=== PATIENT | male | born 1940 | race African-American/Black ===

== ENCOUNTER → 2017-01-26 | Outpatient (CLI) | payer MEDICARE, MEDICAID ==
[~2017-01-26] MED LIST: AMLO5TAB88 PO; ASPI-1159 PO; ATEN50TA PO; ATOR10TA69 PO; CARV3.1242 PO; CLOP75TA33 PO; DEXL60CA3 PO; FERR-63 PO; FURO20TA4 PO; OXYC-100 PO; POTA10CA42 PO
== END | disposition home or self-care (01) ==
LOC: RAD 14:21
PROVIDERS: ATTEND Internal Medicine Clinical Cardiac Electrophysiology
DX: I50.22 Chronic systolic (congestive) heart failure (principal); I25.5 Ischemic cardiomyopathy; I51.7 Cardiomegaly; Z95.810 Presence of automatic (implantable) cardiac defibrillator
CPT/HCPCS: 71010

== ENCOUNTER 2017-01-28 13:37 | Inpatient (IN) | payer MEDICARE, MEDICAID ==
[~2017-01-28] VITALS: Ht 182.9 cm; Wt 52.2 kg
[~2017-01-28 13:37] MED LIST changes: -ASPI-1159 PO; -CARV3.1242 PO; -FERR-63 PO; -FURO20TA4 PO; +IOHEXOL-300 100 ML BOTTLE ONE; -OXYC-100 PO; -POTA10CA42 PO; +SODIUM CHLORIDE 0.9% 10ML VIAL ONE
[2017-01-28] MEDS ORDERED: SODIUM CHLORIDE 0.9% 1,000 ML IV ONE (14:35)
[2017-01-28] MEDS ORDERED: ONDANSETRON HCL 4MG/2ML VIAL IV ONE (14:45)
[2017-01-28 15:11] LABS: BASOPHILS % 1.5 % (0.0-2.0); HEMATOCRIT. 30.3 % (42.0-52.0); LYMPHOCYTES % 23.2 % (20.0-50.0); MEAN CORPUSCULAR HEMOGLOBIN 28.6 pg (28.0-32.0); MEAN CORPUSCULAR VOLUME 86.6 fL (80.0-94.0); MEAN PLATELET VOLUME 7.8 fl (7.4-10.4); NEUTROPHILS % 58.3 % (40.0-76.0); PLATELET 239 x1000/uL (130-400); RED CELL DISTRIBUTION WIDTH 18.6 % (11.6-14.6)
[2017-01-28 15:19] LABS: INR 1.2; PROTHROMBIN TIME 12.1 sec (9.4-11.6)
[2017-01-28] MEDS ORDERED: CARV3.1242 PO (15:21)
[2017-01-28] MEDS ORDERED: ASPI-1159 PO (15:22)
[2017-01-28] MEDS ORDERED: FERR-63 PO (15:23)
[2017-01-28] MEDS ORDERED: FURO20TA4 PO (15:23)
[2017-01-28] MEDS ORDERED: OXYC-100 PO (15:24)
[2017-01-28] MEDS ORDERED: POTA10CA42 PO (15:25)
[2017-01-28 15:28] LABS: CARBON DIOXIDE 27 mEq/L (21-32); CHLORIDE 117 mEq/L (98-107); TROPONIN I 0.03 ng/mL (0.00-0.04)
[2017-01-28 16:00] LABS: CLARITY URINE CLEAR (CLEAR); COLOR URINE YELLOW (YELLOW); GLUCOSE URINE NEGATIVE (NEGATIVE); KETONES URINE NEGATIVE (NEGATIVE); LEUKOCYTE ESTERASE URINE NEGATIVE (NEGATIVE); NITRITE URINE NEGATIVE (NEGATIVE); OCCULT BLOOD URINE NEGATIVE (NEGATIVE); PROTEIN URINE NEGATIVE (NEGATIVE); UROBILINOGEN URINE 0.2 E.U./dL (0.2-1.0)
[2017-01-28] MEDS ORDERED: PANTOPRAZOLE SODIUM 40 MG/VIAL IV SCH (20:45)
[2017-01-28 21:00] VITALS: BP 116/58
[2017-01-28] MEDS ORDERED: ONDANSETRON HCL 4MG/2ML VIAL IV PRN (21:22)
[2017-01-28] MEDS ORDERED: ACETAMINOPHEN 325MG TABLET PO PRN (21:24)
[2017-01-28] MEDS ORDERED: DIPHENHYDRAMINE 50MG/ML VIAL IV PRN (21:24)
[2017-01-28] MEDS ORDERED: DEXT 5%/0.2% NACL 1,000 ML IV SCH (21:24)
[2017-01-28 23:24] VITALS: BP 116/58
[2017-01-29] VITALS: BP 107/57
[2017-01-29] MEDS: DEXT 5%/0.2% NACL 1,000 ML IV SCH ×2 (01:00→02:38)
[2017-01-29 04:00] VITALS: BP 115/60
[2017-01-29] MEDS: PANTOPRAZOLE 40MG DR TABLET PO SCH (06:19)
[2017-01-29 06:46] LABS: BASOPHILS % 1.2 % (0.0-2.0); HEMOGLOBIN. 10.1 g/dL (14.0-18.0); LYMPHOCYTES % 23.1 % (20.0-50.0); MEAN CORPUSCULAR VOLUME 86.2 fL (80.0-94.0); MEAN PLATELET VOLUME 7.9 fl (7.4-10.4); MONOCYTES % 8.4 % (2.0-8.0); NEUTROPHILS % 59.3 % (40.0-76.0); PLATELET 221 x1000/uL (130-400); RED BLOOD CELL COUNT 3.47 mill/uL (4.7-6.1); RED CELL DISTRIBUTION WIDTH 18.9 % (11.6-14.6)
[2017-01-29 07:20] LABS: CARBON DIOXIDE 25 mEq/L (21-32); CHLORIDE 112 mEq/L (98-107)
[2017-01-29 07:23] LABS: TROPONIN I 0.04 ng/mL (0.00-0.04)
[2017-01-29 08:00] VITALS: BP 108/66
[2017-01-29] MEDS ORDERED: AMLODIPINE 5MG TABLET PO SCH (09:00)
[2017-01-29] MEDS: AMLODIPINE 2.5MG TABLET PO SCH (09:00)
[2017-01-29] MEDS: CLOPIDOGREL 75MG TABLET PO SCH (09:19)
[2017-01-29] MEDS: ASPIRIN 81MG EC TABLET PO SCH (09:20)
[2017-01-29] MEDS: CARVEDILOL 3.125 MG TABLET PO SCH ×2 (09:20→18:29)
[2017-01-29 12:03] VITALS: BP 95/63
[2017-01-29 16:00] VITALS: BP_SYST 105; BP_SYST 110; BP_SYST 116; BP_DIAS 67; BP_DIAS 68; BP_DIAS 70
[2017-01-29 20:00] VITALS: BP_SYST 109; BP_SYST 121; BP_SYST 122; BP_DIAS 66; BP_DIAS 73; BP_DIAS 75
[2017-01-29] MEDS ORDERED: MAGNESIUM/ALUMINUM HYDROXIDE/SIMETHICONE 30ML UDC PO PRN (20:00)
[2017-01-29] MEDS: ATORVASTATIN CALCIUM 10MG TABLET PO SCH (21:03)
[2017-01-30] VITALS: BP 105/62
[2017-01-30 04:00] VITALS: BP 115/69
[2017-01-30] MEDS: PANTOPRAZOLE 40MG DR TABLET PO SCH (06:02)
[2017-01-30 06:43] LABS: BASOPHILS % 0.7 % (0.0-2.0); EOSINOPHILS % 6.3 % (0.0-5.0); HEMATOCRIT. 30.8 % (42.0-52.0); HEMOGLOBIN. 10.3 g/dL (14.0-18.0); MEAN CORPUSCULAR HEMOGLOBIN 29.1 pg (28.0-32.0); MEAN CORPUSCULAR VOLUME 86.7 fL (80.0-94.0); MEAN PLATELET VOLUME 7.8 fl (7.4-10.4); MONOCYTES % 8.1 % (2.0-8.0); NEUTROPHILS % 66.9 % (40.0-76.0); PLATELET 211 x1000/uL (130-400); RED BLOOD CELL COUNT 3.55 mill/uL (4.7-6.1); RED CELL DISTRIBUTION WIDTH 18.5 % (11.6-14.6)
[2017-01-30 08:00] VITALS: BP 111/72
[2017-01-30] MEDS: AMLODIPINE 2.5MG TABLET PO SCH (08:18)
[2017-01-30] MEDS: ASPIRIN 81MG EC TABLET PO SCH (08:18)
[2017-01-30] MEDS: CLOPIDOGREL 75MG TABLET PO SCH (08:18)
[2017-01-30] MEDS: CARVEDILOL 3.125 MG TABLET PO SCH ×2 (08:18→16:10)
[2017-01-30 08:33] LABS: CARBON DIOXIDE 26 mEq/L (21-32); CHLORIDE 107 mEq/L (98-107); CREATINE KINASE 65 IU/L (39-308); HDL CHOLESTEROL 52 mg/dL (40-59); LDL CHOLESTEROL 88 mg/dL (5-100)
[2017-01-30 12:00] VITALS: BP_SYST 100; BP_SYST 103; BP_SYST 110; BP_DIAS 62; BP_DIAS 64; BP_DIAS 68
[2017-01-30 16:07] VITALS: BP 113/65
[2017-01-30 20:51] VITALS: BP_SYST 101; BP_SYST 105; BP_SYST 93; BP_DIAS 64; BP_DIAS 66
[2017-01-30] MEDS: ATORVASTATIN CALCIUM 10MG TABLET PO SCH (21:37)
[2017-01-31 00:25] VITALS: BP 96/60
[2017-01-31 03:50] VITALS: BP 100/66
[2017-01-31] MEDS: PANTOPRAZOLE 40MG DR TABLET PO SCH (06:31)
[2017-01-31 07:17] LABS: BASOPHILS % 0.6 % (0.0-2.0); EOSINOPHILS % 7.5 % (0.0-5.0); HEMATOCRIT. 30.8 % (42.0-52.0); HEMOGLOBIN. 10.4 g/dL (14.0-18.0); LYMPHOCYTES % 22.6 % (20.0-50.0); MEAN CORPUSCULAR HEMOGLOBIN 28.9 pg (28.0-32.0); MEAN CORPUSCULAR VOLUME 85.6 fL (80.0-94.0); MEAN PLATELET VOLUME 8.1 fl (7.4-10.4); MONOCYTES % 8.5 % (2.0-8.0); NEUTROPHILS % 60.8 % (40.0-76.0); PLATELET 210 x1000/uL (130-400); RED CELL DISTRIBUTION WIDTH 18.1 % (11.6-14.6)
[2017-01-31 08:00] VITALS: BP 98/66
[2017-01-31 08:00] LABS: CARBON DIOXIDE 27 mEq/L (21-32); CHLORIDE 108 mEq/L (98-107)
[2017-01-31] MEDS: CLOPIDOGREL 75MG TABLET PO SCH (08:33)
[2017-01-31] MEDS: ASPIRIN 81MG EC TABLET PO SCH (08:33)
[2017-01-31] MEDS: AMLODIPINE 2.5MG TABLET PO SCH (08:42)
[2017-01-31] MEDS: CARVEDILOL 3.125 MG TABLET PO SCH (09:00)
[2017-01-31 12:00] VITALS: BP 99/61
[2017-01-31 15:52] VITALS: BP_SYST 112; BP_SYST 117; BP_SYST 119; BP_DIAS 70; BP_DIAS 78; BP_DIAS 80
[2017-01-31 16:43] VITALS: BP 117/78
== END 2017-01-31 17:20 | disposition home or self-care (01) | DRG 73 ==
LOC: ER 14:26 → EDBEDREQTM 19:26 → EDBEDREQ 19:26 → EDBEDREQTM 19:44 → EDBEDREQ 19:44 → 6WST 19:44 → ENRESERV 19:54 → 6WST 20:54
PROVIDERS: ADMIT Internal Medicine; ATTEND Internal Medicine
PROC: 4B02XTZ Measurement of Cardiac Defibrillator, External Approach (ICD-10-PCS; principal; 2017-01-31)
DX: G90.8 Other disorders of autonomic nervous system (principal); E43 Unspecified severe protein-calorie malnutrition; E87.0 Hyperosmolality and hypernatremia; I50.22 Chronic systolic (congestive) heart failure; I42.0 Dilated cardiomyopathy; Z68.1 Body mass index [BMI] 19.9 or less, adult; I11.0 Hypertensive heart disease with heart failure; K21.9 Gastro-esophageal reflux disease without esophagitis; I25.10 Atherosclerotic heart disease of native coronary artery without angina pectoris; E78.00 Pure hypercholesterolemia, unspecified; I34.0 Nonrheumatic mitral (valve) insufficiency; I73.9 Peripheral vascular disease, unspecified; K57.90 Diverticulosis of intestine, part unspecified, without perforation or abscess without bleeding; N20.0 Calculus of kidney; Z87.891 Personal history of nicotine dependence; Z95.0 Presence of cardiac pacemaker; I25.2 Old myocardial infarction; Z79.82 Long term (current) use of aspirin; Z79.899 Other long term (current) drug therapy
CPT/HCPCS: 36415; 70450; 71010; 74177; 80053; 80061; 81003; 82550; 82553; 82962; 83605; 83690; 83735; 83880; 84484; 85025; 85379; 85610; 93005; 93306; 93970; 96361; 96374; 99285; A4216; J2405; J7030; Q9967

== ENCOUNTER 2018-06-20 19:07 | Emergency (ER) | payer MEDICARE, MEDICAID ==
[~2018-06-20] VITALS: Ht 175.3 cm; Wt 66.0 kg
[~2018-06-20 19:07] MED LIST changes: +ASPI-1159 PO; -ATEN50TA PO; +CARV3.1242 PO; +FERR-63 PO; +FURO20TA4 PO; -IOHEXOL-300 100 ML BOTTLE ONE; +OXYC-100 PO; +POTA10CA42 PO; -SODIUM CHLORIDE 0.9% 10ML VIAL ONE
[2018-06-21] MEDS ORDERED: KETOROLAC 30MG/ML VIAL IV STA (00:13)
[2018-06-21 01:23] LABS: BASOPHILS % 0.5 % (0.0-2.0); EOSINOPHILS % 5.7 % (0.0-5.0); HEMATOCRIT. 39.3 % (42.0-52.0); HEMOGLOBIN. 13.1 g/dL (14.0-18.0); LYMPHOCYTES % 32.5 % (20.0-50.0); MEAN CORPUSCULAR HEMOGLOBIN 31.9 pg (28.0-32.0); MEAN CORPUSCULAR VOLUME 95.5 fL (80.0-94.0); MEAN PLATELET VOLUME 8.8 fl (7.4-10.4); MONOCYTES % 9.3 % (2.0-8.0); PLATELET 168 x1000/uL (130-400); RED BLOOD CELL COUNT 4.11 mill/uL (4.7-6.1); RED CELL DISTRIBUTION WIDTH 14.3 % (11.6-14.6)
[2018-06-21 01:30] LABS: CHLORIDE 108 mEq/L (98-107)
[2018-06-21 05:46] VITALS: BP 116/70
== END 2018-06-21 05:54 | disposition home or self-care (01) ==
LOC: ER 19:07
DX: M54.12 Radiculopathy, cervical region (principal); I51.9 Heart disease, unspecified; Z79.899 Other long term (current) drug therapy; Z95.0 Presence of cardiac pacemaker
CPT/HCPCS: 36415; 71045; 72125; 80053; 84484; 85025; 93005; 96374; 99284; J1885

== ENCOUNTER 2019-03-06 12:16 | Inpatient (IN) | payer MEDICARE, MEDICAID ==
[~2019-03-06] VITALS: Ht 175.3 cm; Wt 64.4 kg
[~2019-03-06 12:16] MED LIST changes: -ASPI-1159 PO; +ASPI-1393 PO
[2019-03-06] MEDS ORDERED: SODIUM CHLORIDE 0.9% 1,000 ML IV ONE (12:23)
[2019-03-06] MEDS ORDERED: CEFTRIAXONE 1 G PREMIX 50 ML IV ONE (13:00)
[2019-03-06] MEDS ORDERED: AZITHROMYCIN 500 MG in DEXT 5% WATER 250 ML IV ONE (13:00)
[2019-03-06 13:24] LABS: HEMATOCRIT. 35.3 % (42.0-52.0); HEMOGLOBIN. 11.7 g/dL (14.0-18.0); MEAN CORPUSCULAR HEMOGLOBIN 31.6 pg (28.0-32.0); MEAN CORPUSCULAR VOLUME 95.6 fL (80.0-94.0); PLATELET 176 x1000/uL (130-400); RED CELL DISTRIBUTION WIDTH 14.7 % (11.6-14.6)
[2019-03-06 13:28] LABS: CHLORIDE 115 mEq/L (98-107)
[2019-03-06] MEDS ORDERED: SODIUM CHLORIDE 0.9% 500 ML IV ONE (13:45)
[2019-03-06 13:46] LABS: PLATELET ESTIMATE NORMAL
[2019-03-06] MEDS ORDERED: SODIUM CHLORIDE 0.9% 250 ML IV ONE (14:00)
[2019-03-06] MEDS ORDERED: DOCUSATE SODIUM 100MG CAPSULE PO PRN (15:45)
[2019-03-06] MEDS ORDERED: HYDROCODONE/ACETAMINOPHEN 5/325MG TABLET PO PRN (15:45)
[2019-03-06] MEDS ORDERED: CEFTRIAXONE 1 G PREMIX 50 ML IV SCH (15:45)
[2019-03-06] MEDS ORDERED: CLONIDINE 0.1MG TABLET PO PRN (15:45)
[2019-03-06] MEDS ORDERED: ACETAMINOPHEN 325MG TABLET PO PRN (15:45)
[2019-03-06] MEDS ORDERED: GUAIFENESIN 200MG/10ML SUGAR FREE UDC PO PRN (15:45)
[2019-03-06] MEDS ORDERED: ONDANSETRON HCL 4MG/2ML INJ IV PRN (15:45)
[2019-03-06 16:52] VITALS: BP 130/56
[2019-03-06] MEDS ORDERED: ENOXAPARIN 30MG/0.3ML SYR SUBCUT SCH (17:30)
[2019-03-06 18:00] VITALS: BP 120/64
[2019-03-06] MEDS: SODIUM CHLORIDE 0.9% 1,000 ML IV SCH (18:12)
[2019-03-06 20:00] VITALS: BP 104/60
[2019-03-06 22:00] VITALS: BP 119/77
[2019-03-07] VITALS (13 sets, daily range): BP systolic 91–136; BP diastolic 48–82
[2019-03-07 02:59] LABS: CLARITY URINE CLEAR (CLEAR); COLOR URINE YELLOW (YELLOW); KETONES URINE NEGATIVE (NEGATIVE); LEUKOCYTE ESTERASE URINE TRACE (NEGATIVE); NITRITE URINE NEGATIVE (NEGATIVE); OCCULT BLOOD URINE TRACE (NEGATIVE); PH URINE 5.5 (4.5-8.0); PROTEIN URINE TRACE (NEGATIVE); SPECIFIC GRAVITY URINE 1.014 (1.005-1.030)
[2019-03-07 06:33] LABS: BASOPHILS % 0.3 % (0.0-2.0); EOSINOPHILS % 0.4 % (0.0-5.0); HEMATOCRIT. 25.5 % (42.0-52.0); HEMOGLOBIN. 8.7 g/dL (14.0-18.0); LYMPHOCYTES % 7.8 % (20.0-50.0); MEAN CORPUSCULAR HEMOGLOBIN 32.2 pg (28.0-32.0); MEAN PLATELET VOLUME 8.6 fl (7.4-10.4); MONOCYTES % 7.1 % (2.0-8.0); NEUTROPHILS % 84.4 % (40.0-76.0); PLATELET 128 x1000/uL (130-400); RED BLOOD CELL COUNT 2.71 mill/uL (4.7-6.1); RED CELL DISTRIBUTION WIDTH 14.4 % (11.6-14.6)
[2019-03-07 08:34] LABS: CHLORIDE 118 mEq/L (98-107)
[2019-03-07] MEDS ORDERED: ASPIRIN 81MG EC TABLET PO SCH (09:00)
[2019-03-07 09:01] LABS: CREATINE KINASE 347 IU/L (39-308)
[2019-03-07] MEDS ORDERED: IPRATROPIUM/ALBUTEROL 0.5-3(2.5)MG/3ML NEB HHN PRN (11:30)
[2019-03-07] MEDS: CEFTRIAXONE 1,000 MG in DEXTROSE 5% WATER 50 ML IV SCH (12:48)
[2019-03-07] MEDS: IPRATROPIUM/ALBUTEROL 0.5-3(2.5)MG/3ML NEB HHN SCH ×2 (14:25→21:22)
[2019-03-07 15:20] LABS: TOTAL IRON BINDING CAPACITY 144 ug/dL (250-450)
[2019-03-07] MEDS: AZITHROMYCIN 500 MG in DEXT 5% WATER 250 ML IV SCH (16:24)
[2019-03-08] VITALS (12 sets, daily range): BP systolic 92–125; BP diastolic 34–71
[2019-03-08] MEDS: IPRATROPIUM/ALBUTEROL 0.5-3(2.5)MG/3ML NEB HHN SCH ×4 (02:26→20:25)
[2019-03-08 08:07] LABS: BASOPHILS % 0.2 % (0.0-2.0); HEMATOCRIT. 29.1 % (42.0-52.0); HEMOGLOBIN. 9.7 g/dL (14.0-18.0); LYMPHOCYTES % 7.4 % (20.0-50.0); MEAN CORPUSCULAR HEMOGLOBIN 31.8 pg (28.0-32.0); MONOCYTES % 5.8 % (2.0-8.0); NEUTROPHILS % 83.6 % (40.0-76.0); PLATELET 155 x1000/uL (130-400); RED BLOOD CELL COUNT 3.07 mill/uL (4.7-6.1); RED CELL DISTRIBUTION WIDTH 14.2 % (11.6-14.6)
[2019-03-08 08:45] LABS: CHLORIDE 116 mEq/L (98-107)
[2019-03-08] MEDS: SODIUM CHLORIDE 0.9% 1,000 ML IV SCH (10:51)
[2019-03-08] MEDS: CEFTRIAXONE 1,000 MG in DEXTROSE 5% WATER 50 ML IV SCH (13:52)
[2019-03-08] MEDS: AZITHROMYCIN 500 MG in DEXT 5% WATER 250 ML IV SCH (15:22)
[2019-03-08] MEDS: FERROUS SULFATE 325MG TABLET PO SCH (19:24)
[2019-03-08] MEDS: PANTOPRAZOLE SODIUM 40 MG/VIAL IV SCH (21:09)
[2019-03-08 22:23] LABS: FOLIC ACID (FOLATE) SERUM 14.9 ng/mL (>5.38)
[2019-03-09] VITALS (12 sets, daily range): BP systolic 107–148; BP diastolic 56–77
[2019-03-09] MEDS: IPRATROPIUM/ALBUTEROL 0.5-3(2.5)MG/3ML NEB HHN SCH ×4 (01:57→21:28)
[2019-03-09] MEDS: SODIUM CHLORIDE 0.9% 1,000 ML IV SCH ×3 (03:47→22:29)
[2019-03-09 07:41] LABS: BASOPHILS % 0.4 % (0.0-2.0); HEMATOCRIT. 26.1 % (42.0-52.0); HEMOGLOBIN. 8.8 g/dL (14.0-18.0); LYMPHOCYTES % 12.7 % (20.0-50.0); MEAN CORPUSCULAR VOLUME 94.7 fL (80.0-94.0); MEAN PLATELET VOLUME 8.7 fl (7.4-10.4); MONOCYTES % 7.2 % (2.0-8.0); NEUTROPHILS % 75.7 % (40.0-76.0); PLATELET 164 x1000/uL (130-400); RED BLOOD CELL COUNT 2.76 mill/uL (4.7-6.1); RED CELL DISTRIBUTION WIDTH 14.3 % (11.6-14.6)
[2019-03-09 07:48] LABS: CHLORIDE 116 mEq/L (98-107)
[2019-03-09] MEDS: FERROUS SULFATE 325MG TABLET PO SCH ×3 (07:51→17:22)
[2019-03-09] MEDS: PANTOPRAZOLE SODIUM 40 MG/VIAL IV SCH ×2 (08:34→22:28)
[2019-03-09] MEDS: CEFTRIAXONE 1,000 MG in DEXTROSE 5% WATER 50 ML IV SCH (12:04)
[2019-03-09] MEDS: AZITHROMYCIN 500 MG in DEXT 5% WATER 250 ML IV SCH (13:11)
[2019-03-09] MEDS ORDERED: MIDAZOLAM HCL 5 MG/5 ML VIAL ONE (16:06)
[2019-03-09] MEDS ORDERED: FENTANYL CITRATE/PF 50MCG/ML 2ML VIAL ONE (16:06)
[2019-03-10] VITALS (12 sets, daily range): BP systolic 106–131; BP diastolic 53–84
[2019-03-10] MEDS: IPRATROPIUM/ALBUTEROL 0.5-3(2.5)MG/3ML NEB HHN SCH ×4 (02:33→20:40)
[2019-03-10] MEDS: PANTOPRAZOLE SODIUM 40 MG/VIAL IV SCH ×2 (09:16→20:59)
[2019-03-10] MEDS: FERROUS SULFATE 325MG TABLET PO SCH ×3 (09:16→17:19)
[2019-03-10] MEDS: CEFTRIAXONE 1,000 MG in DEXTROSE 5% WATER 50 ML IV SCH (12:04)
[2019-03-10] MEDS: SODIUM CHLORIDE 0.9% 1,000 ML IV SCH (13:57)
[2019-03-10] MEDS: AZITHROMYCIN 500 MG in DEXT 5% WATER 250 ML IV SCH (15:16)
[2019-03-10 15:58] LABS: CHLORIDE 116 mEq/L (98-107)
[2019-03-10 16:03] LABS: BASOPHILS % 0.2 % (0.0-2.0); EOSINOPHILS % 4.4 % (0.0-5.0); HEMATOCRIT. 26.1 % (42.0-52.0); HEMOGLOBIN. 8.7 g/dL (14.0-18.0); LYMPHOCYTES % 14.4 % (20.0-50.0); MEAN CORPUSCULAR VOLUME 95.6 fL (80.0-94.0); MEAN PLATELET VOLUME 8.7 fl (7.4-10.4); MONOCYTES % 6.1 % (2.0-8.0); NEUTROPHILS % 74.9 % (40.0-76.0); PLATELET 197 x1000/uL (130-400); RED BLOOD CELL COUNT 2.73 mill/uL (4.7-6.1); RED CELL DISTRIBUTION WIDTH 14.2 % (11.6-14.6)
[2019-03-10] MEDS: IRON SUCROSE COMPLEX 100 MG/5 ML ML IV SCH (17:19)
[2019-03-10] MEDS: SUCRALFATE 1 G/10 ML UDC PO SCH ×2 (17:19→20:59)
[2019-03-11] VITALS (10 sets, daily range): BP systolic 96–132; BP diastolic 53–79
[2019-03-11] MEDS: IPRATROPIUM/ALBUTEROL 0.5-3(2.5)MG/3ML NEB HHN SCH ×2 (01:18→09:44)
[2019-03-11] MEDS: SODIUM CHLORIDE 0.9% 1,000 ML IV SCH ×2 (05:04→17:30)
[2019-03-11] MEDS: SUCRALFATE 1 G/10 ML UDC PO SCH ×3 (06:40→17:30)
[2019-03-11] MEDS: PANTOPRAZOLE SODIUM 40 MG/VIAL IV SCH (08:46)
[2019-03-11] MEDS: FERROUS SULFATE 325MG TABLET PO SCH ×3 (08:47→17:30)
[2019-03-11] MEDS ORDERED: MAGNESIUM HYDROXIDE 400MG/5ML 30ML UDC PO PRN (09:00)
[2019-03-11] MEDS ORDERED: MULTIVITAMINS,THER W-MINERALS TABLET PO SCH (09:00)
[2019-03-11 11:51] LABS: HEMATOCRIT 25.1 % (42.0-52.0); HEMOGLOBIN 8.5 g/dL (14.0-18.0); MEAN CORPUSCULAR HEMOGLOBIN 32.4 pg (28.0-32.0); MEAN CORPUSCULAR VOLUME 95.3 fL (80.0-94.0); PLATELET 232 x1000/uL (130-400); RED BLOOD CELL COUNT 2.63 mill/uL (4.7-6.1); RED CELL DISTRIBUTION WIDTH 13.9 % (11.6-14.6)
[2019-03-11 12:15] LABS: CHLORIDE 117 mEq/L (98-107)
[2019-03-11] MEDS ORDERED: BUDESONIDE 0.5MG/2ML NEB HHN SCH (12:15)
[2019-03-11] MEDS: CEFTRIAXONE 1,000 MG in DEXTROSE 5% WATER 50 ML IV SCH (13:47)
[2019-03-11] MEDS ORDERED: AZITHROMYCIN 500 MG TABLET PO SCH (16:00)
[2019-03-11] MEDS ORDERED: IPRATROPIUM/ALBUTEROL 0.5-3(2.5)MG/3ML NEB HHN SCH (16:00)
[2019-03-11] MEDS ORDERED: AZITHROMYCIN 500 MG in DEXT 5% WATER 250 ML IV SCH (16:00)
[2019-03-11] MEDS: IRON SUCROSE COMPLEX 100 MG/5 ML ML IV SCH (16:06)
== END 2019-03-11 17:45 | DRG 871 ==
LOC: ER 12:16 → 5EST 14:13 → EDBEDREQTM 14:17 → EDBEDREQ 14:17 → ENRESERV 15:32
PROVIDERS: ADMIT Hospitalist; ATTEND Hospitalist
PROC: 0DB78ZX Excision of Stomach, Pylorus, Via Natural or Artificial Opening Endoscopic, Diagnostic (ICD-10-PCS; principal; 2019-03-11)
DX: A41.9 Sepsis, unspecified organism (principal); J18.1 Lobar pneumonia, unspecified organism; J96.20 Acute and chronic respiratory failure, unspecified whether with hypoxia or hypercapnia; N17.9 Acute kidney failure, unspecified; E46 Unspecified protein-calorie malnutrition; I50.22 Chronic systolic (congestive) heart failure; I13.0 Hypertensive heart and chronic kidney disease with heart failure and stage 1 through stage 4 chronic kidney disease, or unspecified chronic kidney disease; D62 Acute posthemorrhagic anemia; I25.5 Ischemic cardiomyopathy; N18.9 Chronic kidney disease, unspecified; R65.20 Severe sepsis without septic shock; I34.0 Nonrheumatic mitral (valve) insufficiency; K21.9 Gastro-esophageal reflux disease without esophagitis; I25.10 Atherosclerotic heart disease of native coronary artery without angina pectoris; E78.00 Pure hypercholesterolemia, unspecified; E78.5 Hyperlipidemia, unspecified; I73.9 Peripheral vascular disease, unspecified; K25.9 Gastric ulcer, unspecified as acute or chronic, without hemorrhage or perforation; I95.9 Hypotension, unspecified; D50.9 Iron deficiency anemia, unspecified; K29.70 Gastritis, unspecified, without bleeding; K44.9 Diaphragmatic hernia without obstruction or gangrene; Z82.49 Family history of ischemic heart disease and other diseases of the circulatory system; Z87.891 Personal history of nicotine dependence; Z95.5 Presence of coronary angioplasty implant and graft; Z95.810 Presence of automatic (implantable) cardiac defibrillator; Z79.899 Other long term (current) drug therapy; Z79.82 Long term (current) use of aspirin; Z68.21 Body mass index [BMI] 21.0-21.9, adult
CPT/HCPCS: 36415; 71045; 80048; 81003; 82270; 82550; 82553; 82607; 82728; 82746; 83540; 83550; 83605; 83735; 83880; 84443; 84484; 85027; 85044; 85379; 88305; 88313; 93005; 93970; 94640; 96365; 97162; 97166; 97530; 99291; C9113; J0456; J0696; J1650; J2250; J3010; J7030; J7040; J7050; J7060; J7620

== ENCOUNTER 2019-03-11 17:55 | Inpatient (IN) | payer MEDICARE, MEDICAID ==
[~2019-03-11] VITALS: Ht 175.3 cm; Wt 64.4 kg
[2019-03-11 18:51] VITALS: BP 120/68
[2019-03-11 18:54] VITALS: BP 120/68
[2019-03-11] MEDS ORDERED: IPRATROPIUM/ALBUTEROL 0.5-3(2.5)MG/3ML NEB HHN PRN (19:45)
[2019-03-11] MEDS ORDERED: CLONIDINE 0.1MG TABLET PO PRN (19:45)
[2019-03-11] MEDS ORDERED: DOCUSATE SODIUM 100MG CAPSULE PO PRN (19:45)
[2019-03-11] MEDS ORDERED: GUAIFENESIN 200MG/10ML SUGAR FREE UDC PO PRN (19:45)
[2019-03-11] MEDS ORDERED: ONDANSETRON HCL 4MG/2ML INJ IV PRN (19:45)
[2019-03-11] MEDS ORDERED: ACETAMINOPHEN 325MG TABLET PO PRN (19:45)
[2019-03-11 20:00] VITALS: BP 122/64
[2019-03-11] MEDS: IPRATROPIUM/ALBUTEROL 0.5-3(2.5)MG/3ML NEB HHN SCH (20:59)
[2019-03-11] MEDS: BUDESONIDE 0.5MG/2ML NEB HHN SCH (21:00)
[2019-03-11] MEDS: SUCRALFATE 1 G/10 ML UDC PO SCH (22:07)
[2019-03-11] MEDS: PANTOPRAZOLE 40MG DR TABLET PO SCH (22:07)
[2019-03-12] MEDS: SODIUM CHLORIDE 0.9% 1,000 ML IV SCH ×2 (00:59→09:48)
[2019-03-12] MEDS: IPRATROPIUM/ALBUTEROL 0.5-3(2.5)MG/3ML NEB HHN SCH ×6 (01:06→22:08)
[2019-03-12] MEDS: SUCRALFATE 1 G/10 ML UDC PO SCH ×4 (05:50→20:32)
[2019-03-12] MEDS: MAGNESIUM HYDROXIDE 400MG/5ML 30ML UDC PO PRN (06:27)
[2019-03-12 07:49] VITALS: BP 142/61
[2019-03-12] MEDS ORDERED: FERROUS SULFATE 325MG TABLET PO SCH (09:00)
[2019-03-12] MEDS: BUDESONIDE 0.5MG/2ML NEB HHN SCH ×3 (09:00→22:09)
[2019-03-12] MEDS: ASPIRIN 81MG EC TABLET PO SCH (09:47)
[2019-03-12] MEDS: PANTOPRAZOLE 40MG DR TABLET PO SCH ×2 (09:47→20:32)
[2019-03-12] MEDS: MULTIVITAMINS,THER W-MINERALS TABLET PO SCH (09:47)
[2019-03-12] MEDS ORDERED: CEFTRIAXONE 1,000 MG in DEXTROSE 5% WATER 50 ML IV SCH (14:00)
[2019-03-12] MEDS ORDERED: LEVOFLOXACIN 250MG TABLET PO NR (14:15)
[2019-03-12] MEDS: FERROUS SULFATE 325MG TABLET PO SCH (16:59)
[2019-03-12] MEDS: AZITHROMYCIN 500 MG TABLET PO SCH (16:59)
[2019-03-12] MEDS ORDERED: IRON SUCROSE COMPLEX 100 MG in SODIUM CHLORIDE 0.9% 100 ML IV NR (18:00)
[2019-03-12 20:00] VITALS: BP 109/52
[2019-03-13] MEDS: IPRATROPIUM/ALBUTEROL 0.5-3(2.5)MG/3ML NEB HHN SCH ×6 (00:53→21:37)
[2019-03-13] MEDS: SUCRALFATE 1 G/10 ML UDC PO SCH ×4 (06:05→20:12)
[2019-03-13 07:49] VITALS: BP 101/53
[2019-03-13] MEDS: MULTIVITAMINS,THER W-MINERALS TABLET PO SCH (09:27)
[2019-03-13] MEDS: ASPIRIN 81MG EC TABLET PO SCH (09:27)
[2019-03-13] MEDS: FERROUS SULFATE 325MG TABLET PO SCH ×3 (09:27→17:31)
[2019-03-13] MEDS: PANTOPRAZOLE 40MG DR TABLET PO SCH ×2 (09:27→20:17)
[2019-03-13] MEDS: BUDESONIDE 0.5MG/2ML NEB HHN SCH ×2 (10:23→21:38)
[2019-03-13] MEDS: LEVOFLOXACIN 250MG TABLET PO SCH (12:17)
[2019-03-13] MEDS: AZITHROMYCIN 500 MG TABLET PO SCH (17:31)
[2019-03-13 20:00] VITALS: BP 102/51
[2019-03-14] MEDS: IPRATROPIUM/ALBUTEROL 0.5-3(2.5)MG/3ML NEB HHN SCH ×6 (01:03→21:52)
[2019-03-14] MEDS: SUCRALFATE 1 G/10 ML UDC PO SCH ×4 (05:52→21:25)
[2019-03-14 08:00] VITALS: BP 131/71
[2019-03-14] MEDS: ASPIRIN 81MG EC TABLET PO SCH (08:30)
[2019-03-14] MEDS: MULTIVITAMINS,THER W-MINERALS TABLET PO SCH (08:31)
[2019-03-14] MEDS: FERROUS SULFATE 325MG TABLET PO SCH ×3 (08:31→16:33)
[2019-03-14] MEDS: PANTOPRAZOLE 40MG DR TABLET PO SCH ×2 (08:31→21:25)
[2019-03-14] MEDS: BUDESONIDE 0.5MG/2ML NEB HHN SCH (09:01)
[2019-03-14] MEDS: LEVOFLOXACIN 250MG TABLET PO SCH (10:29)
[2019-03-14] MEDS: AZITHROMYCIN 500 MG TABLET PO SCH (16:33)
[2019-03-14 20:00] VITALS: BP_SYST 126; BP_SYST 136; BP_DIAS 58; BP_DIAS 70
[2019-03-15] MEDS: IPRATROPIUM/ALBUTEROL 0.5-3(2.5)MG/3ML NEB HHN SCH ×7 (00:48→23:53)
[2019-03-15] MEDS: SUCRALFATE 1 G/10 ML UDC PO SCH ×4 (05:54→20:10)
[2019-03-15 08:00] VITALS: BP 113/61
[2019-03-15] MEDS: PANTOPRAZOLE 40MG DR TABLET PO SCH ×2 (08:45→20:11)
[2019-03-15] MEDS: MULTIVITAMINS,THER W-MINERALS TABLET PO SCH (08:45)
[2019-03-15] MEDS: FERROUS SULFATE 325MG TABLET PO SCH ×3 (08:45→16:47)
[2019-03-15] MEDS: ASPIRIN 81MG EC TABLET PO SCH (09:26)
[2019-03-15] MEDS: LEVOFLOXACIN 250MG TABLET PO SCH (11:32)
[2019-03-15] MEDS: AZITHROMYCIN 500 MG TABLET PO SCH (16:47)
[2019-03-15 20:00] VITALS: BP 96/57
[2019-03-16] MEDS: IPRATROPIUM/ALBUTEROL 0.5-3(2.5)MG/3ML NEB HHN SCH ×5 (04:00→21:05)
[2019-03-16] MEDS: SUCRALFATE 1 G/10 ML UDC PO SCH ×4 (05:32→20:28)
[2019-03-16 08:02] VITALS: BP 100/50
[2019-03-16] MEDS: ASPIRIN 81MG EC TABLET PO SCH (08:31)
[2019-03-16] MEDS: PANTOPRAZOLE 40MG DR TABLET PO SCH ×2 (08:31→20:28)
[2019-03-16] MEDS: FERROUS SULFATE 325MG TABLET PO SCH ×3 (08:31→17:15)
[2019-03-16] MEDS: MULTIVITAMINS,THER W-MINERALS TABLET PO SCH (08:31)
[2019-03-16] MEDS: AZITHROMYCIN 500 MG TABLET PO SCH (17:15)
[2019-03-16 20:00] VITALS: BP 104/60
[2019-03-16] MEDS: MAGNESIUM HYDROXIDE 400MG/5ML 30ML UDC PO PRN (20:34)
[2019-03-17] MEDS: IPRATROPIUM/ALBUTEROL 0.5-3(2.5)MG/3ML NEB HHN SCH ×6 (01:23→20:22)
[2019-03-17] MEDS: SUCRALFATE 1 G/10 ML UDC PO SCH ×4 (05:58→20:29)
[2019-03-17 07:52] VITALS: BP 82/47
[2019-03-17] MEDS: MULTIVITAMINS,THER W-MINERALS TABLET PO SCH (09:06)
[2019-03-17] MEDS: ASPIRIN 81MG EC TABLET PO SCH (09:06)
[2019-03-17] MEDS: FERROUS SULFATE 325MG TABLET PO SCH ×3 (09:06→16:40)
[2019-03-17] MEDS: PANTOPRAZOLE 40MG DR TABLET PO SCH ×2 (09:06→20:29)
[2019-03-17] MEDS: AZITHROMYCIN 500 MG TABLET PO SCH (16:40)
[2019-03-17 20:00] VITALS: BP 120/68
[2019-03-18] MEDS: IPRATROPIUM/ALBUTEROL 0.5-3(2.5)MG/3ML NEB HHN SCH ×6 (01:05→19:53)
[2019-03-18] MEDS: SUCRALFATE 1 G/10 ML UDC PO SCH ×4 (05:56→21:06)
[2019-03-18 06:54] LABS: EOSINOPHILS % 5.6 % (0.0-5.0); HEMATOCRIT. 26.5 % (42.0-52.0); HEMOGLOBIN. 9.2 g/dL (14.0-18.0); LYMPHOCYTES % 30.7 % (20.0-50.0); MEAN CORPUSCULAR HEMOGLOBIN 32.9 pg (28.0-32.0); MEAN PLATELET VOLUME 7.7 fl (7.4-10.4); MONOCYTES % 10.4 % (2.0-8.0); NEUTROPHILS % 51.3 % (40.0-76.0); PLATELET 381 x1000/uL (130-400); RED BLOOD CELL COUNT 2.78 mill/uL (4.7-6.1); RED CELL DISTRIBUTION WIDTH 14.1 % (11.6-14.6)
[2019-03-18 07:46] LABS: CHLORIDE 109 mEq/L (98-107)
[2019-03-18 07:56] VITALS: BP 129/72
[2019-03-18] MEDS: ASPIRIN 81MG EC TABLET PO SCH (09:04)
[2019-03-18] MEDS: PANTOPRAZOLE 40MG DR TABLET PO SCH ×2 (09:04→21:06)
[2019-03-18] MEDS: MULTIVITAMINS,THER W-MINERALS TABLET PO SCH (09:04)
[2019-03-18] MEDS: FERROUS SULFATE 325MG TABLET PO SCH ×3 (09:04→16:38)
[2019-03-18] MEDS: AZITHROMYCIN 500 MG TABLET PO SCH (16:38)
[2019-03-18 20:00] VITALS: BP 117/85
[2019-03-19] MEDS: IPRATROPIUM/ALBUTEROL 0.5-3(2.5)MG/3ML NEB HHN SCH ×5 (00:46→16:38)
[2019-03-19] MEDS: SUCRALFATE 1 G/10 ML UDC PO SCH ×4 (05:57→21:01)
[2019-03-19 07:58] VITALS: BP 106/61
[2019-03-19] MEDS: FERROUS SULFATE 325MG TABLET PO SCH ×3 (09:00→16:27)
[2019-03-19] MEDS: PANTOPRAZOLE 40MG DR TABLET PO SCH ×2 (09:00→21:01)
[2019-03-19] MEDS: ASPIRIN 81MG EC TABLET PO SCH (09:00)
[2019-03-19] MEDS: MULTIVITAMINS,THER W-MINERALS TABLET PO SCH (09:00)
[2019-03-19] MEDS: AZITHROMYCIN 500 MG TABLET PO SCH (16:27)
[2019-03-19] MEDS: MAGNESIUM HYDROXIDE 400MG/5ML 30ML UDC PO PRN (16:27)
[2019-03-19 20:00] VITALS: BP 116/65
[2019-03-20] MEDS: IPRATROPIUM/ALBUTEROL 0.5-3(2.5)MG/3ML NEB HHN SCH ×6 (00:25→21:26)
[2019-03-20] MEDS: SUCRALFATE 1 G/10 ML UDC PO SCH ×4 (06:11→20:42)
[2019-03-20 08:16] VITALS: BP 81/47
[2019-03-20] MEDS: ASPIRIN 81MG EC TABLET PO SCH (08:44)
[2019-03-20] MEDS: PANTOPRAZOLE 40MG DR TABLET PO SCH ×2 (08:44→20:42)
[2019-03-20] MEDS: MULTIVITAMINS,THER W-MINERALS TABLET PO SCH (08:44)
[2019-03-20] MEDS: FERROUS SULFATE 325MG TABLET PO SCH ×3 (08:44→16:00)
[2019-03-20 20:00] VITALS: BP 99/56
[2019-03-21] MEDS: IPRATROPIUM/ALBUTEROL 0.5-3(2.5)MG/3ML NEB HHN SCH ×4 (01:15→11:41)
[2019-03-21] MEDS: SUCRALFATE 1 G/10 ML UDC PO SCH ×2 (05:33→11:52)
[2019-03-21 08:00] VITALS: BP 87/45
[2019-03-21] MEDS: FERROUS SULFATE 325MG TABLET PO SCH (08:53)
[2019-03-21] MEDS: MULTIVITAMINS,THER W-MINERALS TABLET PO SCH (08:53)
[2019-03-21] MEDS: PANTOPRAZOLE 40MG DR TABLET PO SCH (08:53)
[2019-03-21] MEDS: ASPIRIN 81MG EC TABLET PO SCH (08:53)
[2019-03-21] MEDS ORDERED: SODIUM CHLORIDE 0.9% 250 ML IV SCH (12:00)
[2019-03-21 12:21] VITALS: BP 93/55
== END 2019-03-21 14:15 | disposition home health service (06) | DRG 189 ==
PROVIDERS: ADMIT Psychiatry & Neurology Neurology; ATTEND Hospitalist
DX: J96.20 Acute and chronic respiratory failure, unspecified whether with hypoxia or hypercapnia (principal); A41.9 Sepsis, unspecified organism; J18.9 Pneumonia, unspecified organism; J44.0 Chronic obstructive pulmonary disease with (acute) lower respiratory infection; I13.0 Hypertensive heart and chronic kidney disease with heart failure and stage 1 through stage 4 chronic kidney disease, or unspecified chronic kidney disease; N17.9 Acute kidney failure, unspecified; E46 Unspecified protein-calorie malnutrition; I50.22 Chronic systolic (congestive) heart failure; N18.9 Chronic kidney disease, unspecified; I25.5 Ischemic cardiomyopathy; I25.10 Atherosclerotic heart disease of native coronary artery without angina pectoris; K21.9 Gastro-esophageal reflux disease without esophagitis; D50.0 Iron deficiency anemia secondary to blood loss (chronic); K25.9 Gastric ulcer, unspecified as acute or chronic, without hemorrhage or perforation; K29.50 Unspecified chronic gastritis without bleeding; K44.9 Diaphragmatic hernia without obstruction or gangrene; F10.11 Alcohol abuse, in remission; R53.81 Other malaise; I95.9 Hypotension, unspecified; F06.31 Mood disorder due to known physiological condition with depressive features; F06.8 Other specified mental disorders due to known physiological condition; I34.0 Nonrheumatic mitral (valve) insufficiency; I73.9 Peripheral vascular disease, unspecified; Z95.810 Presence of automatic (implantable) cardiac defibrillator; Z95.5 Presence of coronary angioplasty implant and graft; Z87.891 Personal history of nicotine dependence; Z87.11 Personal history of peptic ulcer disease; Z87.01 Personal history of pneumonia (recurrent); Z79.899 Other long term (current) drug therapy; Z79.82 Long term (current) use of aspirin; Z68.21 Body mass index [BMI] 21.0-21.9, adult
CPT/HCPCS: 36415; 80048; 82270; 92523; 92610; 93005; 94640; 97110; 97112; 97116; 97162; 97166; 97530; 97535; C1893; J0696; J7030; J7050; J7060; J7620; J7626

== ENCOUNTER 2019-05-18 10:51 | Inpatient (IN) | payer MEDICARE, MEDICAID ==
[~2019-05-18] VITALS: Ht 175.3 cm; Wt 162.4 kg
[~2019-05-18 10:51] MED LIST changes: -AMLO5TAB88 PO; -ASPI-1393 PO; -ATOR10TA69 PO; -CARV3.1242 PO; -CLOP75TA33 PO; -DEXL60CA3 PO; -FURO20TA4 PO; -OXYC-100 PO; -POTA10CA42 PO
[2019-05-18] MEDS ORDERED: SODIUM CHLORIDE 0.9% 1,000 ML IV ONE ×2 (11:38→14:45)
[2019-05-18] MEDS ORDERED: ONDANSETRON HCL 4MG/2ML INJ IV STA (11:38)
[2019-05-18 12:18] LABS: BASOPHILS % 0.5 % (0.0-2.0); EOSINOPHILS % 1.7 % (0.0-5.0); HEMATOCRIT. 37.5 % (42.0-52.0); HEMOGLOBIN. 12.6 g/dL (14.0-18.0); LYMPHOCYTES % 16.8 % (20.0-50.0); MEAN CORPUSCULAR HEMOGLOBIN 31.8 pg (28.0-32.0); MEAN CORPUSCULAR VOLUME 94.7 fL (80.0-94.0); MEAN PLATELET VOLUME 7.9 fl (7.4-10.4); PLATELET 154 x1000/uL (130-400); RED BLOOD CELL COUNT 3.96 mill/uL (4.7-6.1); RED CELL DISTRIBUTION WIDTH 14.8 % (11.6-14.6)
[2019-05-18 12:24] LABS: CHLORIDE 113 mEq/L (98-107)
[2019-05-18 14:00] LABS: CLARITY URINE CLEAR (CLEAR); COLOR URINE YELLOW (YELLOW); KETONES URINE NEGATIVE (NEGATIVE); LEUKOCYTE ESTERASE URINE NEGATIVE (NEGATIVE); NITRITE URINE NEGATIVE (NEGATIVE); OCCULT BLOOD URINE NEGATIVE (NEGATIVE); PH URINE 6.5 (4.5-8.0); PROTEIN URINE NEGATIVE (NEGATIVE); SPECIFIC GRAVITY URINE 1.009 (1.005-1.030); UROBILINOGEN URINE 0.2 E.U./dL (0.2-1.0)
[2019-05-18] MEDS ORDERED: ACETAMINOPHEN WITH CODEINE 300/30MG TABLET PO ONE (15:00)
[2019-05-18] MEDS ORDERED: ASPIRIN 325MG TABLET PO ONE (16:15)
[2019-05-18] MEDS ORDERED: NITROGLYCERIN 0.4MG TABLET SL SL PRN (17:45)
[2019-05-18] MEDS ORDERED: TRAMADOL 50MG TABLET PO PRN (17:45)
[2019-05-18] MEDS ORDERED: ACETAMINOPHEN 325MG TABLET PO PRN (17:45)
[2019-05-18] MEDS ORDERED: CLONIDINE 0.1MG TABLET PO PRN (17:45)
[2019-05-18] MEDS ORDERED: DOCUSATE SODIUM 100MG CAPSULE PO PRN (17:45)
[2019-05-18] MEDS ORDERED: IPRATROPIUM/ALBUTEROL 0.5-3(2.5)MG/3ML NEB NEB PRN (17:45)
[2019-05-18] MEDS ORDERED: ONDANSETRON HCL 4MG/2ML INJ IV PRN (17:45)
[2019-05-18] MEDS ORDERED: ZOLPIDEM TARTRATE 5MG TABLET PO PRN (17:45)
[2019-05-18] MEDS ORDERED: GUAIFENESIN 200MG/10ML SUGAR FREE UDC PO PRN (17:45)
[2019-05-18] MEDS ORDERED: MAGNESIUM/ALUMINUM HYDROXIDE/SIMETHICONE 30ML UDC PO PRN (17:45)
[2019-05-18 18:30] VITALS: BP 135/71
[2019-05-18] MEDS ORDERED: ISOS1TAB * (18:35)
[2019-05-18] MEDS ORDERED: DOCU250C14 PO (18:35)
[2019-05-18] MEDS ORDERED: COR12 PO (18:35)
[2019-05-18] MEDS ORDERED: ISOS1TAB PO (18:35)
[2019-05-18] MEDS ORDERED: CARI250T PO (18:35)
[2019-05-18 18:37] VITALS: BP 154/68
[2019-05-18 19:23] LABS: T4 FREE 1.13 ng/dL (0.76-1.46)
[2019-05-18 19:36] LABS: FOLIC ACID (FOLATE) SERUM > 20.00 ng/mL (>5.38)
[2019-05-18 19:46] LABS: VITAMIN B12 SERUM 542 pg/mL (211-911)
[2019-05-18 20:00] VITALS: BP 135/77
[2019-05-18] MEDS: ENOXAPARIN 40MG/0.4ML SYR SUBCUT SCH (21:38)
[2019-05-18] MEDS: SODIUM CHLORIDE 0.9% 1,000 ML IV SCH (21:39)
[2019-05-18] MEDS: FAMOTIDINE 20MG TABLET PO SCH (21:40)
[2019-05-19] VITALS (7 sets, daily range): BP systolic 116–177; BP diastolic 58–110
[2019-05-19 01:35] LABS: CREATINE KINASE MB FRACTION 1.9 ng/mL (0.5-3.6)
[2019-05-19 07:22] LABS: CREATINE KINASE 97 IU/L (39-308)
[2019-05-19 07:23] LABS: CREATINE KINASE MB FRACTION 2.2 ng/mL (0.5-3.6)
[2019-05-19] MEDS: FERROUS SULFATE 300MG/5ML UDC PO SCH ×3 (07:50→18:01)
[2019-05-19] MEDS: ASPIRIN 81MG EC TABLET PO SCH (09:43)
[2019-05-19] MEDS: FAMOTIDINE 20MG TABLET PO SCH ×2 (09:43→21:12)
[2019-05-19] MEDS: ENOXAPARIN 40MG/0.4ML SYR SUBCUT SCH ×2 (09:43→21:13)
[2019-05-19 17:03] LABS: *AMPHETAMINES SCREEN URINE NEGATIVE (NEGATIVE); *BARBITURATES SCREEN URINE NEGATIVE (NEGATIVE); *BENZODIAZEPINES SCREEN URINE NEGATIVE (NEGATIVE); *COCAINE SCREEN URINE NEGATIVE (NEGATIVE); METHADONE URINE SCREEN NEGATIVE (NEGATIVE); OPIATES URINE SCREEN PRESUMTIVE POSITIVE (NEGATIVE)
[2019-05-19 17:04] LABS: CANNABINOID URINE SCREEN NEGATIVE (NEGATIVE); PHENCYCLIDINE URINE SCREEN NEGATIVE (NEGATIVE)
[2019-05-19] MEDS: SODIUM CHLORIDE 0.9% 1,000 ML IV SCH (19:40)
[2019-05-19 20:16] LABS: BASOPHILS % 0.4 % (0.0-2.0); HEMOGLOBIN. 11.4 g/dL (14.0-18.0); LYMPHOCYTES % 22.8 % (20.0-50.0); MEAN CORPUSCULAR HEMOGLOBIN 31.7 pg (28.0-32.0); MEAN CORPUSCULAR VOLUME 94.6 fL (80.0-94.0); MEAN PLATELET VOLUME 8.1 fl (7.4-10.4); MONOCYTES % 7.5 % (2.0-8.0); NEUTROPHILS % 68.3 % (40.0-76.0); PLATELET 149 x1000/uL (130-400); RED CELL DISTRIBUTION WIDTH 14.6 % (11.6-14.6)
[2019-05-19 20:24] LABS: CHLORIDE 113 mEq/L (98-107)
[2019-05-20 00:13] VITALS: BP 141/81
[2019-05-20 04:31] VITALS: BP 123/76
[2019-05-20 08:00] VITALS: BP_SYST 126; BP_SYST 138; BP_DIAS 75; BP_DIAS 99
[2019-05-20] MEDS: FAMOTIDINE 20MG TABLET PO SCH (09:06)
[2019-05-20] MEDS: ASPIRIN 81MG EC TABLET PO SCH (09:06)
[2019-05-20] MEDS: ENOXAPARIN 40MG/0.4ML SYR SUBCUT SCH (09:06)
[2019-05-20] MEDS: FERROUS SULFATE 300MG/5ML UDC PO SCH ×2 (09:10→12:39)
[2019-05-20] MEDS: SODIUM CHLORIDE 0.9% 1,000 ML IV SCH (09:13)
[2019-05-20 12:00] VITALS: BP 137/88
[2019-05-20 12:55] VITALS: BP 138/75
== END 2019-05-20 14:40 | disposition home health service (06) | DRG 73 ==
LOC: ER 11:02 → EDBEDREQ 11:47 → 6WST 16:59 → ENRESERV 17:20 → SUPCPDRO 17:30
PROVIDERS: ADMIT Internal Medicine; ATTEND Internal Medicine
DX: G90.9 Disorder of the autonomic nervous system, unspecified (principal); N17.0 Acute kidney failure with tubular necrosis; E44.1 Mild protein-calorie malnutrition; Z68.43 Body mass index [BMI] 50.0-59.9, adult; I65.22 Occlusion and stenosis of left carotid artery; I10 Essential (primary) hypertension; D63.8 Anemia in other chronic diseases classified elsewhere; R62.7 Adult failure to thrive; I25.10 Atherosclerotic heart disease of native coronary artery without angina pectoris; E78.5 Hyperlipidemia, unspecified; I73.9 Peripheral vascular disease, unspecified; I25.5 Ischemic cardiomyopathy; I34.0 Nonrheumatic mitral (valve) insufficiency; Z95.5 Presence of coronary angioplasty implant and graft; Z87.891 Personal history of nicotine dependence; Z95.810 Presence of automatic (implantable) cardiac defibrillator
CPT/HCPCS: 36415; 71045; 80053; 80061; 80305; 81003; 82140; 82550; 82553; 82607; 82746; 83036; 83540; 83550; 84439; 84443; 84484; 85025; 93005; 93306; 93880; 93970; 97116; 97162; 99285; J1650; J2405; J7030

== ENCOUNTER 2019-05-21 03:36 | Inpatient (IN) | payer MEDICARE, MEDICAID ==
[2019-05-21] VITALS (18 sets, daily range): BP systolic 101–147; BP diastolic 3–97
[~2019-05-21] VITALS: Ht 182.9 cm; Wt 54.9 kg
[2019-05-21 06:56] LABS: BASOPHILS % 0.3 % (0.0-2.0); EOSINOPHILS % 1.9 % (0.0-5.0); HEMATOCRIT. 37.9 % (42.0-52.0); HEMOGLOBIN. 12.7 g/dL (14.0-18.0); LYMPHOCYTES % 19.6 % (20.0-50.0); MEAN CORPUSCULAR HEMOGLOBIN 31.7 pg (28.0-32.0); MEAN CORPUSCULAR VOLUME 94.1 fL (80.0-94.0); MEAN PLATELET VOLUME 8.9 fl (7.4-10.4); MONOCYTES % 9.3 % (2.0-8.0); NEUTROPHILS % 68.9 % (40.0-76.0); PLATELET 171 x1000/uL (130-400); RED BLOOD CELL COUNT 4.03 mill/uL (4.7-6.1); RED CELL DISTRIBUTION WIDTH 14.7 % (11.6-14.6)
[2019-05-21 07:00] LABS: CHLORIDE 109 mEq/L (98-107)
[2019-05-21] MEDS ORDERED: SODIUM CHLORIDE 0.9% 250 ML IV ONE (07:15)
[2019-05-21] MEDS ORDERED: ASPIRIN 325MG EC TABLET PO NR (07:30)
[2019-05-21 08:22] LABS: CLARITY URINE CLEAR (CLEAR); COLOR URINE YELLOW (YELLOW); KETONES URINE NEGATIVE (NEGATIVE); LEUKOCYTE ESTERASE URINE NEGATIVE (NEGATIVE); NITRITE URINE NEGATIVE (NEGATIVE); OCCULT BLOOD URINE NEGATIVE (NEGATIVE); PH URINE 6.5 (4.5-8.0); PROTEIN URINE NEGATIVE (NEGATIVE); SPECIFIC GRAVITY URINE 1.009 (1.005-1.030)
[2019-05-21 08:23] LABS: INR 1.1; PROTHROMBIN TIME 11.1 sec (9.6-11.0)
[2019-05-21] MEDS ORDERED: ONDANSETRON HCL 4MG/2ML INJ IV PRN (08:30)
[2019-05-21] MEDS ORDERED: ACETAMINOPHEN 325MG TABLET PO PRN (08:30)
[2019-05-21] MEDS ORDERED: CARVEDILOL 6.25 MG TABLET PO NR (10:15)
[2019-05-21] MEDS ORDERED: NICARDIPINE 100 MG in SODIUM CHLORIDE 0.9% 60 ML IV PRN ×2 (10:30→12:15)
[2019-05-21] MEDS ORDERED: LOSARTAN POTASSIUM 25 MG TABLET PO NR (10:30)
[2019-05-21] MEDS: DEXT 5%/LACTATED RINGERS 1,000 ML IV SCH ×2 (10:30→18:42)
[2019-05-21] MEDS ORDERED: CLOPIDOGREL 75MG TABLET PO NR (10:30)
[2019-05-21] MEDS: CARVEDILOL 6.25 MG TABLET PO SCH (21:18)
[2019-05-22] VITALS (71 sets, daily range): BP systolic 99–175; BP diastolic 45–113
[2019-05-22 05:52] LABS: BASOPHILS % 0.5 % (0.0-2.0); EOSINOPHILS % 0.5 % (0.0-5.0); HEMATOCRIT. 37.6 % (42.0-52.0); HEMOGLOBIN. 12.6 g/dL (14.0-18.0); LYMPHOCYTES % 17.6 % (20.0-50.0); MEAN CORPUSCULAR HEMOGLOBIN 31.5 pg (28.0-32.0); MEAN PLATELET VOLUME 8.3 fl (7.4-10.4); MONOCYTES % 11.8 % (2.0-8.0); NEUTROPHILS % 69.6 % (40.0-76.0); PLATELET 171 x1000/uL (130-400); RED CELL DISTRIBUTION WIDTH 14.9 % (11.6-14.6)
[2019-05-22] MEDS ORDERED: LOSARTAN POTASSIUM 25 MG TABLET PO SCH (09:00)
[2019-05-22] MEDS ORDERED: CLOPIDOGREL 75MG TABLET PO SCH (09:00)
[2019-05-22] MEDS: CARVEDILOL 6.25 MG TABLET PO SCH ×2 (09:00→20:21)
[2019-05-22] MEDS: DEXT 5%/LACTATED RINGERS 1,000 ML IV SCH (12:16)
[2019-05-22] MEDS ORDERED: DILTIAZEM HCL 125 MG in DEXT 5% WATER 100 ML IV PRN (20:45)
[2019-05-22] MEDS ORDERED: DILTIAZEM HCL 5MG/ML 5ML VIAL IV NR (20:45)
[2019-05-23] VITALS (87 sets, daily range): BP systolic 92–167; BP diastolic 22–102
[2019-05-23] MEDS: DEXT 5%/LACTATED RINGERS 1,000 ML IV SCH ×2 (04:08→20:40)
[2019-05-23] MEDS ORDERED: NICARDIPINE 100 MG in SODIUM CHLORIDE 0.9% 60 ML IV PRN (04:30)
[2019-05-23 06:29] LABS: BASOPHILS % 0.6 % (0.0-2.0); EOSINOPHILS % 2.7 % (0.0-5.0); HEMATOCRIT. 37.6 % (42.0-52.0); HEMOGLOBIN. 12.8 g/dL (14.0-18.0); LYMPHOCYTES % 24.5 % (20.0-50.0); MEAN CORPUSCULAR HEMOGLOBIN 31.9 pg (28.0-32.0); MEAN CORPUSCULAR VOLUME 93.4 fL (80.0-94.0); MEAN PLATELET VOLUME 8.4 fl (7.4-10.4); MONOCYTES % 11.9 % (2.0-8.0); NEUTROPHILS % 60.3 % (40.0-76.0); PLATELET 163 x1000/uL (130-400); RED BLOOD CELL COUNT 4.02 mill/uL (4.7-6.1); RED CELL DISTRIBUTION WIDTH 14.5 % (11.6-14.6)
[2019-05-23 06:46] LABS: CHLORIDE 107 mEq/L (98-107)
[2019-05-23 07:05] LABS: LDL CHOLESTEROL 98 mg/dL (5-100)
[2019-05-23 07:07] LABS: HDL CHOLESTEROL 69 mg/dL (40-59)
[2019-05-23] MEDS ORDERED: CLOPIDOGREL 75MG TABLET PO SCH (09:00)
[2019-05-23] MEDS: PANTOPRAZOLE SODIUM 40 MG/VIAL IV SCH (09:25)
[2019-05-23] MEDS: CARVEDILOL 6.25 MG TABLET PO SCH ×2 (11:15→20:50)
[2019-05-23] MEDS: ASPIRIN 81MG TABLET PO SCH (11:15)
[2019-05-23] MEDS ORDERED: ATORVASTATIN CALCIUM 40MG TABLET PO SCH (21:00)
[2019-05-24] VITALS (35 sets, daily range): BP systolic 95–156; BP diastolic 51–112
[2019-05-24 06:07] LABS: BASOPHILS % 0.6 % (0.0-2.0); EOSINOPHILS % 4.9 % (0.0-5.0); HEMATOCRIT. 37.5 % (42.0-52.0); HEMOGLOBIN. 12.8 g/dL (14.0-18.0); LYMPHOCYTES % 27.9 % (20.0-50.0); MEAN CORPUSCULAR HEMOGLOBIN 31.8 pg (28.0-32.0); MEAN CORPUSCULAR VOLUME 93.5 fL (80.0-94.0); MEAN PLATELET VOLUME 8.1 fl (7.4-10.4); NEUTROPHILS % 55.6 % (40.0-76.0); PLATELET 160 x1000/uL (130-400); RED BLOOD CELL COUNT 4.02 mill/uL (4.7-6.1); RED CELL DISTRIBUTION WIDTH 14.2 % (11.6-14.6)
[2019-05-24 06:22] LABS: CHLORIDE 108 mEq/L (98-107)
[2019-05-24] MEDS: PANTOPRAZOLE SODIUM 40 MG/VIAL IV SCH (08:27)
[2019-05-24] MEDS: ASPIRIN 81MG TABLET PO SCH (08:27)
[2019-05-24] MEDS: CARVEDILOL 6.25 MG TABLET PO SCH ×2 (08:28→21:49)
[2019-05-24] MEDS: CLOPIDOGREL 75MG TABLET PO SCH (09:00)
[2019-05-24] MEDS: ATORVASTATIN CALCIUM 40MG TABLET PO SCH (21:49)
[2019-05-25] VITALS (8 sets, daily range): BP systolic 78–129; BP diastolic 45–81
[2019-05-25] MEDS ORDERED: SODIUM CHLORIDE 0.9% 500 ML IV STA (05:00)
[2019-05-25 07:50] LABS: BASOPHILS % 0.8 % (0.0-2.0); EOSINOPHILS % 5.6 % (0.0-5.0); HEMATOCRIT. 35.7 % (42.0-52.0); HEMOGLOBIN. 12.1 g/dL (14.0-18.0); LYMPHOCYTES % 29.8 % (20.0-50.0); MEAN CORPUSCULAR HEMOGLOBIN 31.7 pg (28.0-32.0); MEAN CORPUSCULAR VOLUME 93.2 fL (80.0-94.0); MEAN PLATELET VOLUME 7.9 fl (7.4-10.4); MONOCYTES % 9.2 % (2.0-8.0); NEUTROPHILS % 54.6 % (40.0-76.0); PLATELET 168 x1000/uL (130-400); RED BLOOD CELL COUNT 3.83 mill/uL (4.7-6.1); RED CELL DISTRIBUTION WIDTH 14.2 % (11.6-14.6)
[2019-05-25] MEDS: CARVEDILOL 6.25 MG TABLET PO SCH ×2 (09:00→21:07)
[2019-05-25] MEDS: CLOPIDOGREL 75MG TABLET PO SCH (10:16)
[2019-05-25] MEDS: ASPIRIN 81MG TABLET PO SCH (10:16)
[2019-05-25] MEDS: PANTOPRAZOLE SODIUM 40 MG/VIAL IV SCH (10:16)
[2019-05-25] MEDS: ATORVASTATIN CALCIUM 40MG TABLET PO SCH (21:07)
[2019-05-26] VITALS: BP 114/67
[2019-05-26 04:00] VITALS: BP 127/81
[2019-05-26 08:00] VITALS: BP 107/76
[2019-05-26] MEDS: CARVEDILOL 6.25 MG TABLET PO SCH (09:00)
[2019-05-26] MEDS: ASPIRIN 81MG TABLET PO SCH (10:06)
[2019-05-26] MEDS: CLOPIDOGREL 75MG TABLET PO SCH (10:07)
[2019-05-26] MEDS: PANTOPRAZOLE SODIUM 40 MG/VIAL IV SCH (10:07)
[2019-05-26 12:00] VITALS: BP 128/82
[2019-05-26 18:12] VITALS: BP 127/77
[2019-05-27] MEDS ORDERED: FAMOTIDINE 20MG TABLET PO SCH (09:00)
== END 2019-05-26 18:55 | DRG 64 ==
LOC: ER 03:36 → CVICU 10:18 → EDBEDREQSVC 10:23 → ENRESERV 14:17 → CVICU 15:40 → MICUNO 05-22 11:19 → 5WST 05-24 13:30
PROVIDERS: ADMIT Internal Medicine; ATTEND Internal Medicine
DX: I63.9 Cerebral infarction, unspecified (principal); G93.6 Cerebral edema; I50.22 Chronic systolic (congestive) heart failure; N17.9 Acute kidney failure, unspecified; I13.0 Hypertensive heart and chronic kidney disease with heart failure and stage 1 through stage 4 chronic kidney disease, or unspecified chronic kidney disease; R47.01 Aphasia; N18.9 Chronic kidney disease, unspecified; I25.5 Ischemic cardiomyopathy; D64.9 Anemia, unspecified; E87.8 Other disorders of electrolyte and fluid balance, not elsewhere classified; E78.5 Hyperlipidemia, unspecified; I65.23 Occlusion and stenosis of bilateral carotid arteries; F03.90 Unspecified dementia, unspecified severity, without behavioral disturbance, psychotic disturbance, mood disturbance, and anxiety; I25.10 Atherosclerotic heart disease of native coronary artery without angina pectoris; I48.91 Unspecified atrial fibrillation; Z86.73 Personal history of transient ischemic attack (TIA), and cerebral infarction without residual deficits; Z87.891 Personal history of nicotine dependence; Z95.810 Presence of automatic (implantable) cardiac defibrillator; Z79.899 Other long term (current) drug therapy
CPT/HCPCS: 36415; 71045; 80048; 80053; 80061; 81003; 84484; 85025; 92610; 93005; 95816; 97116; 97162; 97166; 97530; 97535; 99291; C9113; J2405; J3490; J7040; J7050; J7121

== ENCOUNTER 2019-05-26 18:56 | Inpatient (IN) | payer MEDICARE, MEDICAID ==
[~2019-05-26] VITALS: Ht 182.9 cm; Wt 59.4 kg
[2019-05-26 19:00] VITALS: BP 136/76
[2019-05-26 20:00] VITALS: BP 136/76
[2019-05-26] MEDS ORDERED: ONDANSETRON HCL 4MG/2ML INJ IV PRN (20:15)
[2019-05-26] MEDS ORDERED: ACETAMINOPHEN 325MG TABLET PO PRN (20:15)
[2019-05-26] MEDS: CARVEDILOL 6.25 MG TABLET PO SCH (22:00)
[2019-05-26] MEDS: ATORVASTATIN CALCIUM 40MG TABLET PO SCH (22:00)
[2019-05-27 08:00] VITALS: BP 117/69
[2019-05-27 08:07] VITALS: BP 117/69
[2019-05-27] MEDS: CARVEDILOL 6.25 MG TABLET PO SCH ×2 (08:40→21:00)
[2019-05-27] MEDS: FAMOTIDINE 40MG TABLET PO SCH (08:41)
[2019-05-27] MEDS: CLOPIDOGREL 75MG TABLET PO SCH (08:41)
[2019-05-27] MEDS: ASPIRIN 81MG TABLET PO SCH (08:41)
[2019-05-27] MEDS ORDERED: NA PHOS,M-B/NA PHOS,DI-BA ENEMA 118ML PR PRN (13:45)
[2019-05-27] MEDS ORDERED: LACTULOSE 20G/30ML UDC PO PRN (13:45)
[2019-05-27] MEDS ORDERED: LACTULOSE 20G/30ML UDC PO SCH (14:00)
[2019-05-27] MEDS: BISACODYL 5MG TABLET PO PRN (17:13)
[2019-05-27] MEDS: DOCUSATE SODIUM 100MG CAPSULE PO SCH (17:13)
[2019-05-27 20:00] VITALS: BP 109/69
[2019-05-27] MEDS: ATORVASTATIN CALCIUM 40MG TABLET PO SCH (21:37)
[2019-05-28 08:02] VITALS: BP 103/45
[2019-05-28] MEDS: ASPIRIN 81MG TABLET PO SCH (08:44)
[2019-05-28] MEDS: DOCUSATE SODIUM 100MG CAPSULE PO SCH ×2 (08:44→16:12)
[2019-05-28] MEDS: CLOPIDOGREL 75MG TABLET PO SCH (08:44)
[2019-05-28] MEDS: FAMOTIDINE 40MG TABLET PO SCH (08:45)
[2019-05-28] MEDS: CARVEDILOL 6.25 MG TABLET PO SCH ×2 (08:48→21:28)
[2019-05-28 20:00] VITALS: BP 129/75
[2019-05-28] MEDS: ATORVASTATIN CALCIUM 40MG TABLET PO SCH (21:27)
[2019-05-29 07:23] LABS: BASOPHILS % 0.5 % (0.0-2.0); EOSINOPHILS % 3.4 % (0.0-5.0); HEMATOCRIT. 36.5 % (42.0-52.0); HEMOGLOBIN. 12.5 g/dL (14.0-18.0); LYMPHOCYTES % 21.1 % (20.0-50.0); MEAN CORPUSCULAR HEMOGLOBIN 32.1 pg (28.0-32.0); MEAN CORPUSCULAR VOLUME 93.5 fL (80.0-94.0); MONOCYTES % 6.7 % (2.0-8.0); NEUTROPHILS % 68.3 % (40.0-76.0); PLATELET 213 x1000/uL (130-400); RED CELL DISTRIBUTION WIDTH 14.1 % (11.6-14.6)
[2019-05-29 07:47] VITALS: BP 100/58
[2019-05-29] MEDS: CLOPIDOGREL 75MG TABLET PO SCH (08:36)
[2019-05-29] MEDS: CARVEDILOL 6.25 MG TABLET PO SCH ×2 (08:37→20:53)
[2019-05-29] MEDS: ASPIRIN 81MG TABLET PO SCH (08:37)
[2019-05-29] MEDS: FAMOTIDINE 40MG TABLET PO SCH (08:37)
[2019-05-29] MEDS ORDERED: DOCUSATE SODIUM 100MG CAPSULE PO PRN (09:00)
[2019-05-29] MEDS ORDERED: LACTULOSE 20G/30ML UDC PO PRN (14:00)
[2019-05-29 20:00] VITALS: BP 115/70
[2019-05-29] MEDS: ATORVASTATIN CALCIUM 40MG TABLET PO SCH (20:53)
[2019-05-29] MEDS: LACTULOSE 20G/30ML UDC PO SCH (20:55)
[2019-05-30 07:41] VITALS: BP 87/60
[2019-05-30 08:05] VITALS: BP 86/56
[2019-05-30] MEDS: ASPIRIN 81MG TABLET PO SCH (08:07)
[2019-05-30] MEDS: FAMOTIDINE 40MG TABLET PO SCH (08:07)
[2019-05-30] MEDS: CLOPIDOGREL 75MG TABLET PO SCH (08:07)
[2019-05-30] MEDS: CARVEDILOL 6.25 MG TABLET PO SCH (08:08)
[2019-05-30 09:36] VITALS: BP 125/83
[2019-05-30 11:23] VITALS: BP 119/74
[2019-05-30 11:53] LABS: BASOPHILS % 0.6 % (0.0-2.0); EOSINOPHILS % 3.2 % (0.0-5.0); HEMATOCRIT. 38.8 % (42.0-52.0); HEMOGLOBIN. 13.2 g/dL (14.0-18.0); LYMPHOCYTES % 23.1 % (20.0-50.0); MEAN CORPUSCULAR HEMOGLOBIN 31.9 pg (28.0-32.0); MEAN CORPUSCULAR VOLUME 93.6 fL (80.0-94.0); MEAN PLATELET VOLUME 8.2 fl (7.4-10.4); MONOCYTES % 8.3 % (2.0-8.0); NEUTROPHILS % 64.8 % (40.0-76.0); PLATELET 220 x1000/uL (130-400); RED BLOOD CELL COUNT 4.15 mill/uL (4.7-6.1); RED CELL DISTRIBUTION WIDTH 14.1 % (11.6-14.6)
[2019-05-30 12:45] LABS: CHLORIDE 111 mEq/L (98-107)
[2019-05-30 20:00] VITALS: BP 103/63
[2019-05-30] MEDS: ATORVASTATIN CALCIUM 40MG TABLET PO SCH (20:21)
[2019-05-30] MEDS: CARVEDILOL 3.125 MG TABLET PO SCH (20:21)
[2019-05-30] MEDS: LACTULOSE 20G/30ML UDC PO SCH (20:21)
[2019-05-31] MEDS: BISACODYL 5MG TABLET PO PRN ×2 (06:05→17:16)
[2019-05-31 08:07] VITALS: BP 108/64
[2019-05-31] MEDS: CARVEDILOL 3.125 MG TABLET PO SCH ×2 (09:00→20:41)
[2019-05-31] MEDS: CLOPIDOGREL 75MG TABLET PO SCH (09:05)
[2019-05-31] MEDS: FAMOTIDINE 40MG TABLET PO SCH (09:06)
[2019-05-31] MEDS: ASPIRIN 81MG TABLET PO SCH (09:06)
[2019-05-31 20:00] VITALS: BP 116/74
[2019-05-31] MEDS: LACTULOSE 20G/30ML UDC PO SCH (20:40)
[2019-05-31] MEDS: ATORVASTATIN CALCIUM 40MG TABLET PO SCH (20:41)
[2019-06-01 08:11] VITALS: BP 97/64
[2019-06-01] MEDS: FAMOTIDINE 40MG TABLET PO SCH (08:40)
[2019-06-01] MEDS: CARVEDILOL 3.125 MG TABLET PO SCH ×2 (08:40→21:00)
[2019-06-01] MEDS: ASPIRIN 81MG TABLET PO SCH (08:40)
[2019-06-01] MEDS: CLOPIDOGREL 75MG TABLET PO SCH (08:40)
[2019-06-01 20:00] VITALS: BP 107/67
[2019-06-01] MEDS: LACTULOSE 20G/30ML UDC PO SCH (21:35)
[2019-06-01] MEDS: ATORVASTATIN CALCIUM 40MG TABLET PO SCH (21:35)
[2019-06-02 08:01] VITALS: BP 100/54
[2019-06-02] MEDS: CARVEDILOL 3.125 MG TABLET PO SCH ×2 (09:00→21:00)
[2019-06-02] MEDS: ASPIRIN 81MG TABLET PO SCH (09:12)
[2019-06-02] MEDS: CLOPIDOGREL 75MG TABLET PO SCH (09:12)
[2019-06-02] MEDS: FAMOTIDINE 40MG TABLET PO SCH (09:13)
[2019-06-02 11:54] VITALS: BP 113/60
[2019-06-02 12:55] VITALS: BP 144/66
[2019-06-02 14:10] VITALS: BP 105/62
[2019-06-02 14:34] VITALS: BP 98/39
[2019-06-02 20:00] VITALS: BP 98/60
[2019-06-02] MEDS: LACTULOSE 20G/30ML UDC PO SCH (21:00)
[2019-06-02] MEDS: ATORVASTATIN CALCIUM 40MG TABLET PO SCH (21:06)
[2019-06-03] MEDS: CARVEDILOL 3.125 MG TABLET PO SCH ×2 (09:00→21:00)
[2019-06-03] MEDS: FAMOTIDINE 40MG TABLET PO SCH (09:02)
[2019-06-03] MEDS: CLOPIDOGREL 75MG TABLET PO SCH (09:02)
[2019-06-03] MEDS: ASPIRIN 81MG TABLET PO SCH (09:02)
[2019-06-03 09:05] VITALS: BP 97/59
[2019-06-03] MEDS: MEGESTROL ACETATE 400 MG/10 ML UDC PO SCH (14:18)
[2019-06-03] MEDS ORDERED: MV,1TABL8 PO (15:55)
[2019-06-03] MEDS ORDERED: FERR325T6 MT (15:55)
[2019-06-03] MEDS ORDERED: ATOR40TA70 PO (15:55)
[2019-06-03] MEDS ORDERED: ASPI-1497 PO (15:55)
[2019-06-03] MEDS ORDERED: POTA-9 PO (15:55)
[2019-06-03] MEDS ORDERED: CARV3.1242 PO (15:55)
[2019-06-03 20:00] VITALS: BP 104/65
[2019-06-03] MEDS: LACTULOSE 20G/30ML UDC PO SCH (21:45)
[2019-06-03] MEDS: ATORVASTATIN CALCIUM 40MG TABLET PO SCH (21:45)
[2019-06-04 08:02] VITALS: BP 102/65
[2019-06-04 08:31] VITALS: BP 102/65
[2019-06-04] MEDS: CLOPIDOGREL 75MG TABLET PO SCH (08:52)
[2019-06-04] MEDS: FAMOTIDINE 20MG TABLET PO SCH (08:52)
[2019-06-04] MEDS: ASPIRIN 81MG TABLET PO SCH (08:52)
[2019-06-04] MEDS: MEGESTROL ACETATE 400 MG/10 ML UDC PO SCH (08:53)
[2019-06-04] MEDS: CARVEDILOL 3.125 MG TABLET PO SCH ×2 (08:54→21:53)
[2019-06-04 17:03] VITALS: BP 99/46
[2019-06-04 20:00] VITALS: BP 112/74
[2019-06-04] MEDS: ATORVASTATIN CALCIUM 40MG TABLET PO SCH (21:52)
[2019-06-04] MEDS: LACTULOSE 20G/30ML UDC PO SCH (21:52)
[2019-06-05 08:00] VITALS: BP 126/83
[2019-06-05] MEDS: ASPIRIN 81MG TABLET PO SCH (08:12)
[2019-06-05] MEDS: FAMOTIDINE 20MG TABLET PO SCH (08:12)
[2019-06-05] MEDS: MEGESTROL ACETATE 400 MG/10 ML UDC PO SCH (08:13)
[2019-06-05] MEDS: CLOPIDOGREL 75MG TABLET PO SCH (08:13)
[2019-06-05] MEDS: CARVEDILOL 3.125 MG TABLET PO SCH ×2 (08:13→21:21)
[2019-06-05 20:00] VITALS: BP 106/61
[2019-06-05] MEDS: LACTULOSE 20G/30ML UDC PO SCH (21:00)
[2019-06-05] MEDS: ATORVASTATIN CALCIUM 40MG TABLET PO SCH (21:20)
[2019-06-06 07:30] VITALS: BP 110/62
[2019-06-06] MEDS: ASPIRIN 81MG TABLET PO SCH (08:16)
[2019-06-06] MEDS: FAMOTIDINE 20MG TABLET PO SCH (08:16)
[2019-06-06] MEDS: MEGESTROL ACETATE 400 MG/10 ML UDC PO SCH (08:16)
[2019-06-06] MEDS: CLOPIDOGREL 75MG TABLET PO SCH (08:16)
[2019-06-06] MEDS: CARVEDILOL 3.125 MG TABLET PO SCH ×2 (08:21→21:32)
[2019-06-06] MEDS ORDERED: MEGE400O4 PO (16:20)
[2019-06-06] MEDS ORDERED: CARV3.1242 PO (16:20)
[2019-06-06] MEDS ORDERED: ATOR40TA70 PO (16:20)
[2019-06-06] MEDS ORDERED: ASPI-1497 PO (16:20)
[2019-06-06] MEDS ORDERED: CLOP75TA15 PO (16:20)
[2019-06-06 20:00] VITALS: BP 108/61
[2019-06-06] MEDS: LACTULOSE 20G/30ML UDC PO SCH (21:32)
[2019-06-06] MEDS: ATORVASTATIN CALCIUM 40MG TABLET PO SCH (21:32)
[2019-06-07 07:59] VITALS: BP 96/58
[2019-06-07] MEDS: CLOPIDOGREL 75MG TABLET PO SCH (09:04)
[2019-06-07] MEDS: MEGESTROL ACETATE 400 MG/10 ML UDC PO SCH (09:04)
[2019-06-07] MEDS: FAMOTIDINE 20MG TABLET PO SCH (09:05)
[2019-06-07] MEDS: CARVEDILOL 3.125 MG TABLET PO SCH (09:05)
[2019-06-07] MEDS: ASPIRIN 81MG TABLET PO SCH (09:05)
[2019-06-07 11:48] VITALS: BP 96/58
== END 2019-06-07 15:27 | disposition home health service (06) | DRG 64 ==
PROVIDERS: ADMIT Psychiatry & Neurology Neurology; ATTEND Internal Medicine
DX: I63.9 Cerebral infarction, unspecified (principal); G93.6 Cerebral edema; I13.0 Hypertensive heart and chronic kidney disease with heart failure and stage 1 through stage 4 chronic kidney disease, or unspecified chronic kidney disease; I50.22 Chronic systolic (congestive) heart failure; N17.9 Acute kidney failure, unspecified; I25.10 Atherosclerotic heart disease of native coronary artery without angina pectoris; F01.50 Vascular dementia, unspecified severity, without behavioral disturbance, psychotic disturbance, mood disturbance, and anxiety; E78.5 Hyperlipidemia, unspecified; N18.9 Chronic kidney disease, unspecified; F32.9 Major depressive disorder, single episode, unspecified; D64.9 Anemia, unspecified; E87.8 Other disorders of electrolyte and fluid balance, not elsewhere classified; K59.00 Constipation, unspecified; R29.6 Repeated falls; R47.01 Aphasia; I65.29 Occlusion and stenosis of unspecified carotid artery; I25.5 Ischemic cardiomyopathy; I48.0 Paroxysmal atrial fibrillation; G90.8 Other disorders of autonomic nervous system; R41.89 Other symptoms and signs involving cognitive functions and awareness; G62.9 Polyneuropathy, unspecified; M19.90 Unspecified osteoarthritis, unspecified site; Z95.810 Presence of automatic (implantable) cardiac defibrillator; Z91.81 History of falling
CPT/HCPCS: 36415; 71045; 80048; 85025; 92523; 97110; 97112; 97116; 97162; 97166; 97530; 97535; C1893

== ENCOUNTER 2019-07-22 10:43 | Inpatient (IN) | payer MEDICARE, MEDICAID ==
[~2019-07-22] VITALS: Ht 175.3 cm; Wt 55.4 kg
[~2019-07-22 10:43] MED LIST changes: +ASPI-1497 PO; +ATOR40TA70 PO; +CARV3.1242 PO; +CLOP75TA15 PO; -FERR-63 PO; +FERR325T6 MT; +MEGE400O4 PO; +MV,1TABL8 PO; +POTA-9 PO
[2019-07-22] MEDS ORDERED: SODIUM CHLORIDE 0.9% 1,000 ML IV ONE (11:09)
[2019-07-22 11:45] LABS: BASOPHILS % 0.7 % (0.0-2.0); CHLORIDE 113 mEq/L (98-107); EOSINOPHILS % 3.7 % (0.0-5.0); HEMATOCRIT. 33.1 % (42.0-52.0); HEMOGLOBIN. 11.6 g/dL (14.0-18.0); LYMPHOCYTES % 24.5 % (20.0-50.0); MEAN CORPUSCULAR HEMOGLOBIN 32.8 pg (28.0-32.0); MEAN PLATELET VOLUME 7.8 fl (7.4-10.4); MONOCYTES % 5.9 % (2.0-8.0); NEUTROPHILS % 65.2 % (40.0-76.0); PLATELET 166 x1000/uL (130-400); RED BLOOD CELL COUNT 3.53 mill/uL (4.7-6.1); RED CELL DISTRIBUTION WIDTH 14.3 % (11.6-14.6)
[2019-07-22 11:46] LABS: PROTHROMBIN TIME 11.1 sec (9.6-11.0)
[2019-07-22 11:49] LABS: ETHANOL BLOOD < 10 mg/dL
[2019-07-22 11:52] LABS: LDL CHOLESTEROL 88 mg/dL (5-100)
[2019-07-22] MEDS ORDERED: ONDANSETRON HCL 4MG/2ML INJ IV ONE (12:15)
[2019-07-22] MEDS ORDERED: IOHEXOL-350 100 ML BOTTLE ONE ×2 (13:40→15:56)
[2019-07-22] MEDS ORDERED: ACETAMINOPHEN 325MG TABLET PO PRN (14:30)
[2019-07-22] MEDS ORDERED: ONDANSETRON HCL 4MG/2ML INJ IV PRN (14:30)
[2019-07-22 16:21] LABS: CLARITY URINE CLEAR (CLEAR); COLOR URINE YELLOW (YELLOW); KETONES URINE NEGATIVE (NEGATIVE); LEUKOCYTE ESTERASE URINE NEGATIVE (NEGATIVE); NITRITE URINE NEGATIVE (NEGATIVE); OCCULT BLOOD URINE NEGATIVE (NEGATIVE); PH URINE 5.5 (4.5-8.0); PROTEIN URINE NEGATIVE (NEGATIVE); SPECIFIC GRAVITY URINE 1.021 (1.005-1.030); UROBILINOGEN URINE 0.2 E.U./dL (0.2-1.0)
[2019-07-22 16:37] LABS: *AMPHETAMINES SCREEN URINE NEGATIVE (NEGATIVE); *BARBITURATES SCREEN URINE NEGATIVE (NEGATIVE); *BENZODIAZEPINES SCREEN URINE NEGATIVE (NEGATIVE); *COCAINE SCREEN URINE NEGATIVE (NEGATIVE); CANNABINOID URINE SCREEN NEGATIVE (NEGATIVE); METHADONE URINE SCREEN NEGATIVE (NEGATIVE); OPIATES URINE SCREEN NEGATIVE (NEGATIVE); PHENCYCLIDINE URINE SCREEN NEGATIVE (NEGATIVE)
[2019-07-23] VITALS (7 sets, daily range): BP systolic 103–129; BP diastolic 58–77
[2019-07-23 06:50] LABS: BASOPHILS % 0.6 % (0.0-2.0); EOSINOPHILS % 2.5 % (0.0-5.0); HEMATOCRIT. 32.9 % (42.0-52.0); HEMOGLOBIN. 11.4 g/dL (14.0-18.0); LYMPHOCYTES % 27.1 % (20.0-50.0); MEAN CORPUSCULAR HEMOGLOBIN 32.5 pg (28.0-32.0); MEAN PLATELET VOLUME 7.6 fl (7.4-10.4); MONOCYTES % 8.2 % (2.0-8.0); NEUTROPHILS % 61.6 % (40.0-76.0); PLATELET 166 x1000/uL (130-400); RED CELL DISTRIBUTION WIDTH 14.5 % (11.6-14.6)
[2019-07-23 07:11] LABS: CHLORIDE 114 mEq/L (98-107)
[2019-07-23] MEDS ORDERED: ASPIRIN 81MG EC TABLET PO SCH (09:00)
[2019-07-23] MEDS ORDERED: ENOXAPARIN 40MG/0.4ML SYR SUBCUT SCH (09:00)
[2019-07-23] MEDS ORDERED: CLOPIDOGREL 75MG TABLET PO SCH (09:00)
[2019-07-23] MEDS ORDERED: IOHEXOL-350 100 ML BOTTLE ONE (09:43)
[2019-07-23] MEDS: ENOXAPARIN 60MG/0.6ML SYR SUBCUT SCH ×2 (10:36→23:09)
[2019-07-23 10:43] LABS: T4 FREE 1.11 ng/dL (0.76-1.46)
[2019-07-23 11:12] LABS: VITAMIN B12 SERUM 633 pg/mL (211-911)
[2019-07-23 11:17] LABS: FOLIC ACID (FOLATE) SERUM > 20.00 ng/mL (>5.38)
[2019-07-23] MEDS: ATORVASTATIN CALCIUM 40MG TABLET PO SCH (23:09)
[2019-07-24] VITALS (7 sets, daily range): BP systolic 82–120; BP diastolic 55–70
[2019-07-24 07:46] LABS: BASOPHILS % 0.9 % (0.0-2.0); EOSINOPHILS % 3.1 % (0.0-5.0); HEMATOCRIT. 34.1 % (42.0-52.0); HEMOGLOBIN. 11.7 g/dL (14.0-18.0); LYMPHOCYTES % 31.1 % (20.0-50.0); MEAN CORPUSCULAR HEMOGLOBIN 32.5 pg (28.0-32.0); MEAN CORPUSCULAR VOLUME 94.6 fL (80.0-94.0); MEAN PLATELET VOLUME 7.8 fl (7.4-10.4); NEUTROPHILS % 54.9 % (40.0-76.0); PLATELET 171 x1000/uL (130-400); RED CELL DISTRIBUTION WIDTH 14.3 % (11.6-14.6)
[2019-07-24] MEDS: ENOXAPARIN 60MG/0.6ML SYR SUBCUT SCH ×2 (09:32→21:11)
[2019-07-24] MEDS: ATORVASTATIN CALCIUM 40MG TABLET PO SCH (21:10)
[2019-07-25] VITALS: BP_SYST 167; BP_SYST 89; BP_SYST 98; BP_DIAS 53; BP_DIAS 97
[2019-07-25 04:00] VITALS: BP_SYST 103; BP_SYST 89; BP_DIAS 53; BP_DIAS 58
[2019-07-25 07:54] LABS: BASOPHILS % 0.8 % (0.0-2.0); EOSINOPHILS % 3.7 % (0.0-5.0); HEMATOCRIT. 30.5 % (42.0-52.0); HEMOGLOBIN. 10.6 g/dL (14.0-18.0); LYMPHOCYTES % 33.9 % (20.0-50.0); MEAN CORPUSCULAR HEMOGLOBIN 32.6 pg (28.0-32.0); MEAN CORPUSCULAR VOLUME 93.5 fL (80.0-94.0); NEUTROPHILS % 52.6 % (40.0-76.0); PLATELET 162 x1000/uL (130-400); RED BLOOD CELL COUNT 3.27 mill/uL (4.7-6.1); RED CELL DISTRIBUTION WIDTH 14.5 % (11.6-14.6)
[2019-07-25] MEDS ORDERED: APIX2.5T MT (09:35)
[2019-07-25] MEDS: ENOXAPARIN 60MG/0.6ML SYR SUBCUT SCH (10:05)
[2019-07-25 13:42] VITALS: BP 115/70
== END 2019-07-25 14:00 | disposition home health service (06) | DRG 68 ==
LOC: ER 10:57 → EDBEDREQ 13:39 → ENRESERV 21:43 → 5WST 07-23 00:19
PROVIDERS: ADMIT Internal Medicine; ATTEND Internal Medicine
DX: I65.22 Occlusion and stenosis of left carotid artery (principal); I50.22 Chronic systolic (congestive) heart failure; N17.9 Acute kidney failure, unspecified; I69.354 Hemiplegia and hemiparesis following cerebral infarction affecting left non-dominant side; D64.9 Anemia, unspecified; E87.8 Other disorders of electrolyte and fluid balance, not elsewhere classified; F03.90 Unspecified dementia, unspecified severity, without behavioral disturbance, psychotic disturbance, mood disturbance, and anxiety; I11.0 Hypertensive heart disease with heart failure; I25.10 Atherosclerotic heart disease of native coronary artery without angina pectoris; I25.5 Ischemic cardiomyopathy; K21.9 Gastro-esophageal reflux disease without esophagitis; K57.90 Diverticulosis of intestine, part unspecified, without perforation or abscess without bleeding; R27.0 Ataxia, unspecified; I34.0 Nonrheumatic mitral (valve) insufficiency; I48.91 Unspecified atrial fibrillation; I73.9 Peripheral vascular disease, unspecified; Z95.5 Presence of coronary angioplasty implant and graft; Z95.810 Presence of automatic (implantable) cardiac defibrillator; Z87.891 Personal history of nicotine dependence; Z79.82 Long term (current) use of aspirin; Z79.899 Other long term (current) drug therapy
CPT/HCPCS: 36415; 70496; 70498; 71045; 80048; 80053; 80061; 80305; 80320; 81003; 82607; 82746; 82962; 83036; 83721; 84439; 84443; 84481; 84484; 85025; 86850; 86900; 93005; 93306; 97162; 97166; 99285; J1650; J2405; J7030; Q9967; G0480

== ENCOUNTER 2019-12-15 10:40 | Inpatient (IN) | payer MEDICARE, MEDICAID ==
[~2019-12-15] VITALS: Ht 175.3 cm; Wt 55.3 kg
[~2019-12-15 10:40] MED LIST changes: +APIX2.5T MT; -ASPI-1497 PO; -CLOP75TA15 PO
[2019-12-15] MEDS ORDERED: SODIUM CHLORIDE 0.9% 1,000 ML IV ONE (11:06)
[2019-12-15 11:47] LABS: BASOPHILS % 0.9 % (0.0-2.0); EOSINOPHILS % 2.9 % (0.0-5.0); HEMATOCRIT. 31.6 % (42.0-52.0); HEMOGLOBIN. 10.7 g/dL (14.0-18.0); LYMPHOCYTES % 26.4 % (20.0-50.0); MEAN CORPUSCULAR HEMOGLOBIN 32.6 pg (28.0-32.0); MEAN CORPUSCULAR VOLUME 96.6 fL (80.0-94.0); MEAN PLATELET VOLUME 8.4 fl (7.4-10.4); MONOCYTES % 5.9 % (2.0-8.0); NEUTROPHILS % 63.9 % (40.0-76.0); PLATELET 188 x1000/uL (130-400); RED BLOOD CELL COUNT 3.27 mill/uL (4.7-6.1); RED CELL DISTRIBUTION WIDTH 14.8 % (11.6-14.6)
[2019-12-15 11:53] LABS: CHLORIDE 117 mEq/L (98-107)
[2019-12-15 13:20] LABS: CLARITY URINE CLEAR (CLEAR); COLOR URINE YELLOW (YELLOW); KETONES URINE NEGATIVE (NEGATIVE); LEUKOCYTE ESTERASE URINE NEGATIVE (NEGATIVE); NITRITE URINE NEGATIVE (NEGATIVE); OCCULT BLOOD URINE NEGATIVE (NEGATIVE); PROTEIN URINE NEGATIVE (NEGATIVE); SPECIFIC GRAVITY URINE 1.009 (1.005-1.030)
[2019-12-15] MEDS ORDERED: MAGNESIUM/ALUMINUM HYDROXIDE/SIMETHICONE 30ML UDC PO PRN (14:45)
[2019-12-15] MEDS ORDERED: ONDANSETRON HCL 4MG/2ML INJ IV PRN (14:45)
[2019-12-15] MEDS ORDERED: DOCUSATE SODIUM 100MG CAPSULE PO PRN (14:45)
[2019-12-15] MEDS ORDERED: ZOLPIDEM TARTRATE 5MG TABLET PO PRN (14:45)
[2019-12-15] MEDS ORDERED: GUAIFENESIN 200MG/10ML SUGAR FREE UDC PO PRN (14:45)
[2019-12-15] MEDS ORDERED: IPRATROPIUM/ALBUTEROL 0.5-3(2.5)MG/3ML NEB ORI PRN (14:45)
[2019-12-15] MEDS ORDERED: TRAMADOL 50MG TABLET PO PRN (14:45)
[2019-12-15] MEDS ORDERED: CLONIDINE 0.1MG TABLET PO PRN (14:45)
[2019-12-15] MEDS ORDERED: NITROGLYCERIN 0.4MG TABLET SL SL PRN (14:45)
[2019-12-15] MEDS ORDERED: ACETAMINOPHEN 325MG TABLET PO PRN ×2 (14:45)
[2019-12-15 15:44] LABS: T4 FREE 1.46 ng/dL (0.76-1.46)
[2019-12-15 16:00] VITALS: BP 143/74
[2019-12-15 16:22] VITALS: BP 143/74
[2019-12-15 16:58] LABS: FOLIC ACID (FOLATE) SERUM >20 ng/mL ng/mL (>5.38)
[2019-12-15] MEDS: CARVEDILOL 3.125 MG TABLET PO SCH (17:07)
[2019-12-15 17:11] LABS: VITAMIN B12 SERUM 495 pg/mL (211-911)
[2019-12-15] MEDS: FAMOTIDINE 20MG TABLET PO SCH (17:27)
[2019-12-15] MEDS: APIXABAN 2.5 MG TABLET PO SCH (17:27)
[2019-12-15 20:00] VITALS: BP 126/80
[2019-12-15] MEDS: GUAIFENESIN/DM 600MG/30MG ER TAB 12HR PO SCH (20:42)
[2019-12-15] MEDS: ATORVASTATIN CALCIUM 40MG TABLET PO SCH (20:42)
[2019-12-15] MEDS: ASCORBIC ACID 500 MG TABLET PO SCH (20:42)
[2019-12-16] VITALS: BP 134/86
[2019-12-16 00:04] LABS: CREATINE KINASE MB FRACTION 2.8 ng/mL (0.5-3.6)
[2019-12-16 04:00] VITALS: BP 121/67
[2019-12-16] MEDS: CARVEDILOL 3.125 MG TABLET PO SCH ×2 (06:16→17:52)
[2019-12-16] MEDS: APIXABAN 2.5 MG TABLET PO SCH ×2 (06:16→17:52)
[2019-12-16 07:02] LABS: BASOPHILS % 0.4 % (0.0-2.0); EOSINOPHILS % 3.3 % (0.0-5.0); HEMATOCRIT. 29.7 % (42.0-52.0); HEMOGLOBIN. 10.2 g/dL (14.0-18.0); LYMPHOCYTES % 23.7 % (20.0-50.0); MEAN CORPUSCULAR HEMOGLOBIN 32.9 pg (28.0-32.0); MEAN CORPUSCULAR VOLUME 96.1 fL (80.0-94.0); MEAN PLATELET VOLUME 7.7 fl (7.4-10.4); NEUTROPHILS % 66.6 % (40.0-76.0); PLATELET 178 x1000/uL (130-400); RED BLOOD CELL COUNT 3.09 mill/uL (4.7-6.1); RED CELL DISTRIBUTION WIDTH 14.7 % (11.6-14.6)
[2019-12-16 07:05] LABS: CHLORIDE 118 mEq/L (98-107)
[2019-12-16 07:10] LABS: PHOSPHORUS 3.5 mg/dL (2.5-4.9)
[2019-12-16 07:13] LABS: CREATINE KINASE 284 IU/L (39-308)
[2019-12-16] MEDS: ASPIRIN 81MG EC TABLET PO SCH (08:56)
[2019-12-16] MEDS: ZINC SULFATE 220 MG ( 50 ) CAPSULE PO SCH (08:56)
[2019-12-16] MEDS: FAMOTIDINE 20MG TABLET PO SCH (08:56)
[2019-12-16] MEDS: ASCORBIC ACID 500 MG TABLET PO SCH ×2 (08:56→20:04)
[2019-12-16] MEDS: GUAIFENESIN/DM 600MG/30MG ER TAB 12HR PO SCH ×2 (08:56→20:04)
[2019-12-16 12:00] VITALS: BP 124/81
[2019-12-16 16:00] VITALS: BP 124/82
[2019-12-16 20:00] VITALS: BP 130/73
[2019-12-16] MEDS: ATORVASTATIN CALCIUM 40MG TABLET PO SCH (20:04)
[2019-12-17] VITALS: BP 108/77
[2019-12-17 04:00] VITALS: BP 128/71
[2019-12-17] MEDS: APIXABAN 2.5 MG TABLET PO SCH ×2 (04:59→18:23)
[2019-12-17] MEDS: CARVEDILOL 3.125 MG TABLET PO SCH ×2 (05:00→18:00)
[2019-12-17 08:00] VITALS: BP 129/87
[2019-12-17] MEDS: ASPIRIN 81MG EC TABLET PO SCH (08:26)
[2019-12-17] MEDS: GUAIFENESIN/DM 600MG/30MG ER TAB 12HR PO SCH ×2 (08:26→21:59)
[2019-12-17] MEDS: ZINC SULFATE 220 MG ( 50 ) CAPSULE PO SCH (08:26)
[2019-12-17] MEDS: ASCORBIC ACID 500 MG TABLET PO SCH ×2 (08:26→21:59)
[2019-12-17] MEDS: FAMOTIDINE 20MG TABLET PO SCH (08:26)
[2019-12-17 12:00] VITALS: BP 127/86
[2019-12-17 16:00] VITALS: BP 109/54
[2019-12-17 20:00] VITALS: BP 116/59
[2019-12-17] MEDS: ATORVASTATIN CALCIUM 40MG TABLET PO SCH (21:59)
[2019-12-18] VITALS (7 sets, daily range): BP systolic 106–159; BP diastolic 68–92
[2019-12-18] MEDS: CARVEDILOL 3.125 MG TABLET PO SCH ×2 (05:58→18:10)
[2019-12-18] MEDS: APIXABAN 2.5 MG TABLET PO SCH ×2 (05:58→18:10)
[2019-12-18] MEDS: ASPIRIN 81MG EC TABLET PO SCH (08:01)
[2019-12-18] MEDS: ASCORBIC ACID 500 MG TABLET PO SCH ×2 (08:01→21:33)
[2019-12-18] MEDS: FAMOTIDINE 20MG TABLET PO SCH (08:01)
[2019-12-18] MEDS: ZINC SULFATE 220 MG ( 50 ) CAPSULE PO SCH (08:01)
[2019-12-18] MEDS: GUAIFENESIN/DM 600MG/30MG ER TAB 12HR PO SCH ×2 (08:01→21:33)
[2019-12-18] MEDS: FERROUS SULFATE 325MG TABLET PO SCH ×2 (14:41→18:10)
[2019-12-18] MEDS: ATORVASTATIN CALCIUM 40MG TABLET PO SCH (21:33)
[2019-12-19] VITALS: BP 110/68
[2019-12-19 04:00] VITALS: BP 100/81
[2019-12-19] MEDS: APIXABAN 2.5 MG TABLET PO SCH ×2 (06:13→16:58)
[2019-12-19] MEDS: CARVEDILOL 3.125 MG TABLET PO SCH ×2 (06:16→16:58)
[2019-12-19 08:00] VITALS: BP 108/72
[2019-12-19] MEDS: ZINC SULFATE 220 MG ( 50 ) CAPSULE PO SCH (09:10)
[2019-12-19] MEDS: GUAIFENESIN/DM 600MG/30MG ER TAB 12HR PO SCH ×2 (09:10→21:47)
[2019-12-19] MEDS: ASPIRIN 81MG EC TABLET PO SCH (09:10)
[2019-12-19] MEDS: FERROUS SULFATE 325MG TABLET PO SCH ×2 (09:10→16:58)
[2019-12-19] MEDS: ASCORBIC ACID 500 MG TABLET PO SCH ×2 (09:10→21:47)
[2019-12-19 12:00] VITALS: BP 120/72
[2019-12-19 16:07] VITALS: BP 125/78
[2019-12-19 20:00] VITALS: BP 101/54
[2019-12-19] MEDS: ATORVASTATIN CALCIUM 40MG TABLET PO SCH (21:47)
[2019-12-20] VITALS: BP 106/59
[2019-12-20 04:00] VITALS: BP 115/70
[2019-12-20] MEDS: CARVEDILOL 3.125 MG TABLET PO SCH (06:00)
[2019-12-20] MEDS: APIXABAN 2.5 MG TABLET PO SCH (06:15)
[2019-12-20] MEDS: FERROUS SULFATE 325MG TABLET PO SCH (06:22)
[2019-12-20 08:00] VITALS: BP 102/63
[2019-12-20] MEDS: ZINC SULFATE 220 MG ( 50 ) CAPSULE PO SCH (08:55)
[2019-12-20] MEDS: GUAIFENESIN/DM 600MG/30MG ER TAB 12HR PO SCH (08:55)
[2019-12-20] MEDS: ASPIRIN 81MG EC TABLET PO SCH (08:55)
[2019-12-20] MEDS: ASCORBIC ACID 500 MG TABLET PO SCH (08:56)
[2019-12-20 11:48] VITALS: BP 102/63
[2019-12-20 12:00] VITALS: BP 102/67
[2019-12-20] MEDS ORDERED: LACTULOSE 20G/30ML UDC PO SCH (12:00)
== END 2019-12-20 14:00 | disposition hospice, home (50) | DRG 91 ==
LOC: ER 10:40 → 5WST 14:03 → SUPCPDRO 14:35 → ENRESERV 15:04
PROVIDERS: ADMIT Internal Medicine; ATTEND Internal Medicine
DX: G92 Toxic encephalopathy (principal); N17.0 Acute kidney failure with tubular necrosis; Z68.1 Body mass index [BMI] 19.9 or less, adult; R47.01 Aphasia; I50.9 Heart failure, unspecified; F03.90 Unspecified dementia, unspecified severity, without behavioral disturbance, psychotic disturbance, mood disturbance, and anxiety; I11.0 Hypertensive heart disease with heart failure; R62.7 Adult failure to thrive; I25.10 Atherosclerotic heart disease of native coronary artery without angina pectoris; I34.0 Nonrheumatic mitral (valve) insufficiency; R47.1 Dysarthria and anarthria; I25.5 Ischemic cardiomyopathy; K57.90 Diverticulosis of intestine, part unspecified, without perforation or abscess without bleeding; K21.9 Gastro-esophageal reflux disease without esophagitis; I73.9 Peripheral vascular disease, unspecified; I48.91 Unspecified atrial fibrillation; R13.10 Dysphagia, unspecified; E78.5 Hyperlipidemia, unspecified; D50.9 Iron deficiency anemia, unspecified; Z79.899 Other long term (current) drug therapy; Z86.73 Personal history of transient ischemic attack (TIA), and cerebral infarction without residual deficits; Z95.810 Presence of automatic (implantable) cardiac defibrillator; Z95.5 Presence of coronary angioplasty implant and graft; Z87.891 Personal history of nicotine dependence; Z79.01 Long term (current) use of anticoagulants; D63.8 Anemia in other chronic diseases classified elsewhere; R53.81 Other malaise
CPT/HCPCS: 36415; 71045; 80053; 81003; 82140; 82550; 82553; 82607; 82746; 83540; 83550; 83605; 83615; 83735; 84100; 84145; 84439; 84443; 84484; 85025; 85379; 92610; 93005; 93970; 97116; 97162; 97166; 97530; 99285; J7030

== ENCOUNTER 2019-12-20 16:47 | Inpatient (IN) | payer MEDICARE, MEDICAID ==
[~2019-12-20] VITALS: Ht 167.6 cm; Wt 50.3 kg
[2019-12-20 18:47] LABS: BASOPHILS % 0.7 % (0.0-2.0); EOSINOPHILS % 2.4 % (0.0-5.0); HEMATOCRIT. 35.6 % (42.0-52.0); HEMOGLOBIN. 11.8 g/dL (14.0-18.0); MEAN CORPUSCULAR VOLUME 99.3 fL (80.0-94.0); MEAN PLATELET VOLUME 7.9 fl (7.4-10.4); MONOCYTES % 8.4 % (2.0-8.0); NEUTROPHILS % 59.5 % (40.0-76.0); PLATELET 184 x1000/uL (130-400); RED BLOOD CELL COUNT 3.59 mill/uL (4.7-6.1); RED CELL DISTRIBUTION WIDTH 14.4 % (11.6-14.6)
[2019-12-20 19:01] LABS: CLARITY URINE CLEAR (CLEAR); COLOR URINE YELLOW (YELLOW); KETONES URINE NEGATIVE (NEGATIVE); LEUKOCYTE ESTERASE URINE 2+ (NEGATIVE); NITRITE URINE NEGATIVE (NEGATIVE); OCCULT BLOOD URINE NEGATIVE (NEGATIVE); PH URINE 5.5 (4.5-8.0); PROTEIN URINE NEGATIVE (NEGATIVE); SPECIFIC GRAVITY URINE 1.014 (1.005-1.030)
[2019-12-20 19:11] LABS: *AMPHETAMINES SCREEN URINE NEGATIVE (NEGATIVE); *BARBITURATES SCREEN URINE NEGATIVE (NEGATIVE); *BENZODIAZEPINES SCREEN URINE NEGATIVE (NEGATIVE); *COCAINE SCREEN URINE NEGATIVE (NEGATIVE); METHADONE URINE SCREEN NEGATIVE (NEGATIVE); OPIATES URINE SCREEN NEGATIVE (NEGATIVE)
[2019-12-20 19:12] LABS: CANNABINOID URINE SCREEN NEGATIVE (NEGATIVE); PHENCYCLIDINE URINE SCREEN NEGATIVE (NEGATIVE)
[2019-12-20 19:30] LABS: CHLORIDE 115 mEq/L (98-107)
[2019-12-20] MEDS ORDERED: CEFTRIAXONE 1 G PREMIX 50 ML IV ONE (21:00)
[2019-12-21 00:30] VITALS: BP 110/60
[2019-12-21 04:00] VITALS: BP 119/70
[2019-12-21] MEDS ORDERED: ACETAMINOPHEN 325MG TABLET PO PRN (05:45)
[2019-12-21] MEDS ORDERED: SODIUM CHLORIDE 0.9% 1,000 ML IV SCH (06:30)
[2019-12-21 08:00] VITALS: BP 107/70
[2019-12-21] MEDS ORDERED: ENOXAPARIN 60MG/0.6ML SYR SUBCUT SCH (09:00)
[2019-12-21] MEDS ORDERED: ENOXAPARIN 30MG/0.3ML SYR SUBCUT SCH (09:00)
[2019-12-21] MEDS ORDERED: DEXTROSE 50% WATER 50ML SYRINGE IV PRN (09:15)
[2019-12-21 09:30] LABS: BASOPHILS % 1.2 % (0.0-2.0); HEMATOCRIT. 33.9 % (42.0-52.0); HEMOGLOBIN. 11.4 g/dL (14.0-18.0); LYMPHOCYTES % 32.9 % (20.0-50.0); MEAN CORPUSCULAR HEMOGLOBIN 32.7 pg (28.0-32.0); MEAN CORPUSCULAR VOLUME 96.7 fL (80.0-94.0); MEAN PLATELET VOLUME 7.9 fl (7.4-10.4); MONOCYTES % 7.7 % (2.0-8.0); NEUTROPHILS % 55.2 % (40.0-76.0); PLATELET 191 x1000/uL (130-400); RED BLOOD CELL COUNT 3.51 mill/uL (4.7-6.1); RED CELL DISTRIBUTION WIDTH 14.7 % (11.6-14.6)
[2019-12-21 09:49] LABS: CHLORIDE 119 mEq/L (98-107)
[2019-12-21] MEDS: INSULIN LISPRO 100 UNITS/ML SUBCUT SCH ×3 (11:59→21:00)
[2019-12-21] MEDS: BLOOD SUGAR DIAGNOSTIC STRIP TEST SCH ×3 (11:59→20:27)
[2019-12-21 12:00] VITALS: BP 155/96
[2019-12-21] MEDS: MEGESTROL ACETATE 400 MG/10 ML UDC PO SCH (13:16)
[2019-12-21] MEDS: SODIUM CHLORIDE 0.45% 1,000 ML IV SCH (13:16)
[2019-12-21 16:00] VITALS: BP 133/73
[2019-12-21] MEDS: APIXABAN 2.5 MG TABLET PO SCH (17:36)
[2019-12-21 20:00] VITALS: BP 123/60
[2019-12-21] MEDS: ATORVASTATIN CALCIUM 40MG TABLET PO SCH (21:39)
[2019-12-21] MEDS: CARVEDILOL 3.125 MG TABLET PO SCH (21:39)
[2019-12-21] MEDS: CEFTRIAXONE 1,000 MG in DEXTROSE 5% WATER 50 ML IV SCH (22:09)
[2019-12-22] VITALS (7 sets, daily range): BP systolic 107–118; BP diastolic 65–87
[2019-12-22] MEDS: SODIUM CHLORIDE 0.45% 1,000 ML IV SCH ×2 (05:40→20:25)
[2019-12-22] MEDS: INSULIN LISPRO 100 UNITS/ML SUBCUT SCH ×4 (06:23→21:00)
[2019-12-22] MEDS: BLOOD SUGAR DIAGNOSTIC STRIP TEST SCH ×4 (06:23→21:20)
[2019-12-22] MEDS: APIXABAN 2.5 MG TABLET PO SCH ×2 (08:57→17:08)
[2019-12-22] MEDS: MEGESTROL ACETATE 400 MG/10 ML UDC PO SCH (08:57)
[2019-12-22] MEDS: CARVEDILOL 3.125 MG TABLET PO SCH ×2 (08:57→20:24)
[2019-12-22 12:16] LABS: INR 1.2; PROTHROMBIN TIME 12.4 sec (9.6-11.0)
[2019-12-22] MEDS: CEFTRIAXONE 1,000 MG in DEXTROSE 5% WATER 50 ML IV SCH (20:25)
[2019-12-22] MEDS: ATORVASTATIN CALCIUM 40MG TABLET PO SCH (21:07)
[2019-12-23] VITALS (7 sets, daily range): BP systolic 93–126; BP diastolic 61–92
[2019-12-23 06:15] LABS: BASOPHILS % 0.5 % (0.0-2.0); HEMATOCRIT. 34.9 % (42.0-52.0); HEMOGLOBIN. 11.7 g/dL (14.0-18.0); LYMPHOCYTES % 35.9 % (20.0-50.0); MEAN CORPUSCULAR HEMOGLOBIN 32.4 pg (28.0-32.0); MEAN CORPUSCULAR VOLUME 96.6 fL (80.0-94.0); MEAN PLATELET VOLUME 7.8 fl (7.4-10.4); MONOCYTES % 7.3 % (2.0-8.0); NEUTROPHILS % 53.3 % (40.0-76.0); PLATELET 202 x1000/uL (130-400); RED BLOOD CELL COUNT 3.61 mill/uL (4.7-6.1); RED CELL DISTRIBUTION WIDTH 14.3 % (11.6-14.6)
[2019-12-23] MEDS: INSULIN LISPRO 100 UNITS/ML SUBCUT SCH ×4 (06:25→21:00)
[2019-12-23] MEDS: BLOOD SUGAR DIAGNOSTIC STRIP TEST SCH ×4 (06:25→21:17)
[2019-12-23 06:47] LABS: CHLORIDE 113 mEq/L (98-107)
[2019-12-23] MEDS: CARVEDILOL 3.125 MG TABLET PO SCH ×2 (08:34→21:23)
[2019-12-23] MEDS: MEGESTROL ACETATE 400 MG/10 ML UDC PO SCH (08:45)
[2019-12-23] MEDS: APIXABAN 2.5 MG TABLET PO SCH ×2 (08:45→17:43)
[2019-12-23] MEDS: SODIUM CHLORIDE 0.45% 1,000 ML IV SCH (15:00)
[2019-12-23] MEDS: ATORVASTATIN CALCIUM 40MG TABLET PO SCH (21:22)
== END 2019-12-23 22:45 | DRG 71 ==
LOC: ER 16:59 → 8WST 22:39 → ENRESERV 23:15
PROVIDERS: ADMIT Family Medicine; ATTEND Family Medicine
DX: G93.41 Metabolic encephalopathy (principal); I42.9 Cardiomyopathy, unspecified; I13.0 Hypertensive heart and chronic kidney disease with heart failure and stage 1 through stage 4 chronic kidney disease, or unspecified chronic kidney disease; I50.32 Chronic diastolic (congestive) heart failure; D64.9 Anemia, unspecified; D50.9 Iron deficiency anemia, unspecified; E11.22 Type 2 diabetes mellitus with diabetic chronic kidney disease; N18.9 Chronic kidney disease, unspecified; R62.7 Adult failure to thrive; I25.10 Atherosclerotic heart disease of native coronary artery without angina pectoris; F03.90 Unspecified dementia, unspecified severity, without behavioral disturbance, psychotic disturbance, mood disturbance, and anxiety; I34.0 Nonrheumatic mitral (valve) insufficiency; J44.9 Chronic obstructive pulmonary disease, unspecified; Z79.01 Long term (current) use of anticoagulants; Z79.82 Long term (current) use of aspirin; Z86.73 Personal history of transient ischemic attack (TIA), and cerebral infarction without residual deficits; Z95.0 Presence of cardiac pacemaker; Z95.5 Presence of coronary angioplasty implant and graft; Z79.899 Other long term (current) drug therapy; E11.43 Type 2 diabetes mellitus with diabetic autonomic (poly)neuropathy
CPT/HCPCS: 36415; 71045; 80048; 80053; 80305; 81003; 82962; 83036; 84145; 84484; 85025; 92610; 93005; 93306; 93880; 96365; 97162; 97166; 99285; J0696; J1650; J7060

== ENCOUNTER 2019-12-23 22:48 | Inpatient (IN) | payer MEDICARE, MEDICAID ==
[~2019-12-23] VITALS: Ht 167.6 cm; Wt 50.8 kg
[2019-12-23 23:00] VITALS: BP_SYST 92; BP_SYST 97; BP_DIAS 43; BP_DIAS 60
[2019-12-24] MEDS ORDERED: ACETAMINOPHEN 325MG TABLET PO PRN (01:00)
[2019-12-24] MEDS ORDERED: DEXTROSE 50% WATER 50ML SYRINGE IV PRN (01:00)
[2019-12-24] MEDS: INSULIN LISPRO 100 UNITS/ML SUBCUT SCH ×4 (06:20→21:00)
[2019-12-24] MEDS: BLOOD SUGAR DIAGNOSTIC STRIP TEST SCH ×4 (06:20→21:04)
[2019-12-24 08:00] VITALS: BP 102/61
[2019-12-24] MEDS ORDERED: ACETAMINOPHEN 650MG/20.3ML UDC PO NR (08:00)
[2019-12-24] MEDS ORDERED: APIXABAN 2.5 MG TABLET PO SCH (08:00)
[2019-12-24] MEDS: CARVEDILOL 3.125 MG TABLET PO SCH ×2 (08:55→20:57)
[2019-12-24] MEDS: APIXABAN 2.5 MG TABLET PO SCH ×2 (08:56→17:39)
[2019-12-24] MEDS: MEGESTROL ACETATE 400 MG/10 ML UDC PO SCH (08:56)
[2019-12-24] MEDS: POTASSIUM CHLORIDE 10MEQ TABLET SR PO SCH (08:56)
[2019-12-24] MEDS ORDERED: MEGESTROL ACETATE 400 MG/10 ML UDC PO SCH (09:00)
[2019-12-24] MEDS ORDERED: CARVEDILOL 3.125 MG TABLET PO SCH (09:00)
[2019-12-24] MEDS ORDERED: BISACODYL 5MG TABLET PO PRN ×2 (10:30→14:30)
[2019-12-24] MEDS ORDERED: NA PHOS,M-B/NA PHOS,DI-BA ENEMA 118ML PR PRN (14:30)
[2019-12-24] MEDS: DOCUSATE SODIUM 100MG CAPSULE PO SCH (17:40)
[2019-12-24 20:00] VITALS: BP 109/82
[2019-12-24] MEDS: ATORVASTATIN CALCIUM 40MG TABLET PO SCH (20:59)
[2019-12-24] MEDS ORDERED: ATORVASTATIN CALCIUM 40MG TABLET PO SCH (21:00)
[2019-12-25] MEDS: BLOOD SUGAR DIAGNOSTIC STRIP TEST SCH ×4 (06:09→21:45)
[2019-12-25 08:00] VITALS: BP 101/66
[2019-12-25] MEDS: DOCUSATE SODIUM 100MG CAPSULE PO SCH ×2 (08:56→16:25)
[2019-12-25] MEDS: APIXABAN 2.5 MG TABLET PO SCH ×2 (08:56→16:24)
[2019-12-25] MEDS: POTASSIUM CHLORIDE 10MEQ TABLET SR PO SCH (08:56)
[2019-12-25] MEDS: CARVEDILOL 3.125 MG TABLET PO SCH (08:57)
[2019-12-25] MEDS: MEGESTROL ACETATE 400 MG/10 ML UDC PO SCH (08:58)
[2019-12-25] MEDS: INSULIN LISPRO 100 UNITS/ML SUBCUT SCH ×4 (08:58→21:00)
[2019-12-25] MEDS ORDERED: SODIUM CHLORIDE 0.9% 500 ML IV ONE (11:15)
[2019-12-25 16:40] LABS: CHLORIDE 117 mEq/L (98-107)
[2019-12-25 20:00] VITALS: BP 95/63
[2019-12-25 20:17] LABS: BASOPHILS % 0.8 % (0.0-2.0); EOSINOPHILS % 1.6 % (0.0-5.0); HEMATOCRIT. 31.4 % (42.0-52.0); HEMOGLOBIN. 10.6 g/dL (14.0-18.0); LYMPHOCYTES % 29.8 % (20.0-50.0); MEAN CORPUSCULAR HEMOGLOBIN 32.4 pg (28.0-32.0); MEAN CORPUSCULAR VOLUME 96.6 fL (80.0-94.0); MEAN PLATELET VOLUME 8.8 fl (7.4-10.4); MONOCYTES % 6.8 % (2.0-8.0); PLATELET 192 x1000/uL (130-400); RED BLOOD CELL COUNT 3.26 mill/uL (4.7-6.1); RED CELL DISTRIBUTION WIDTH 14.4 % (11.6-14.6)
[2019-12-25] MEDS: ATORVASTATIN CALCIUM 40MG TABLET PO SCH (21:38)
[2019-12-26] VITALS (14 sets, daily range): BP systolic 66–120; BP diastolic 43–72
[2019-12-26 05:09] LABS: CHLORIDE 117 mEq/L (98-107)
[2019-12-26 05:42] LABS: BASOPHILS % 0.6 % (0.0-2.0); EOSINOPHILS % 1.9 % (0.0-5.0); HEMATOCRIT. 32.7 % (42.0-52.0); HEMOGLOBIN. 10.9 g/dL (14.0-18.0); LYMPHOCYTES % 33.2 % (20.0-50.0); MEAN CORPUSCULAR HEMOGLOBIN 32.4 pg (28.0-32.0); MEAN CORPUSCULAR VOLUME 97.1 fL (80.0-94.0); MEAN PLATELET VOLUME 7.8 fl (7.4-10.4); NEUTROPHILS % 57.3 % (40.0-76.0); PLATELET 194 x1000/uL (130-400); RED BLOOD CELL COUNT 3.37 mill/uL (4.7-6.1); RED CELL DISTRIBUTION WIDTH 14.6 % (11.6-14.6)
[2019-12-26] MEDS: BLOOD SUGAR DIAGNOSTIC STRIP TEST SCH ×4 (07:10→21:39)
[2019-12-26] MEDS: INSULIN LISPRO 100 UNITS/ML SUBCUT SCH ×4 (09:00→21:00)
[2019-12-26] MEDS: DOCUSATE SODIUM 100MG CAPSULE PO SCH ×2 (09:11→17:43)
[2019-12-26] MEDS: MEGESTROL ACETATE 400 MG/10 ML UDC PO SCH (09:11)
[2019-12-26] MEDS: POTASSIUM CHLORIDE 10MEQ TABLET SR PO SCH (09:11)
[2019-12-26] MEDS: APIXABAN 2.5 MG TABLET PO SCH ×2 (09:11→17:43)
[2019-12-26] MEDS ORDERED: ALBUMIN HUMAN 25GM/100ML (25%) IV NR (18:30)
[2019-12-26] MEDS: ATORVASTATIN CALCIUM 40MG TABLET PO SCH (21:39)
[2019-12-26] MEDS: SODIUM CHLORIDE 0.9% 1,000 ML IV SCH (21:54)
[2019-12-27] MEDS: MIDODRINE HCL 2.5MG TABLET PO SCH ×4 (02:41→17:05)
[2019-12-27 04:00] VITALS: BP 125/84
[2019-12-27 06:00] VITALS: BP_SYST 124; BP_SYST 128; BP_DIAS 67; BP_DIAS 68
[2019-12-27] MEDS: BLOOD SUGAR DIAGNOSTIC STRIP TEST SCH ×4 (06:25→21:34)
[2019-12-27] MEDS: PANTOPRAZOLE 40MG DR TABLET PO SCH (07:00)
[2019-12-27 07:04] LABS: CLARITY URINE CLEAR (CLEAR); COLOR URINE YELLOW (YELLOW); KETONES URINE NEGATIVE (NEGATIVE); LEUKOCYTE ESTERASE URINE NEGATIVE (NEGATIVE); NITRITE URINE NEGATIVE (NEGATIVE); OCCULT BLOOD URINE TRACE (NEGATIVE); PROTEIN URINE NEGATIVE (NEGATIVE); SPECIFIC GRAVITY URINE 1.012 (1.005-1.030); UROBILINOGEN URINE 0.2 E.U./dL (0.2-1.0)
[2019-12-27 08:00] VITALS: BP 138/76
[2019-12-27] MEDS: DOCUSATE SODIUM 100MG CAPSULE PO SCH ×2 (08:51→16:56)
[2019-12-27] MEDS: MEGESTROL ACETATE 400 MG/10 ML UDC PO SCH (08:51)
[2019-12-27] MEDS: POTASSIUM CHLORIDE 10MEQ TABLET SR PO SCH (08:51)
[2019-12-27] MEDS: APIXABAN 2.5 MG TABLET PO SCH ×2 (08:51→16:56)
[2019-12-27] MEDS: INSULIN LISPRO 100 UNITS/ML SUBCUT SCH ×4 (08:54→21:00)
[2019-12-27] MEDS: SODIUM CHLORIDE 0.9% 1,000 ML IV SCH ×2 (12:26→21:35)
[2019-12-27 16:24] LABS: CHLORIDE 116 mEq/L (98-107)
[2019-12-27 17:08] VITALS: BP 114/66
[2019-12-27 20:00] VITALS: BP 110/72
[2019-12-27 21:00] VITALS: BP_SYST 131; BP_SYST 135; BP_DIAS 74; BP_DIAS 85
[2019-12-27] MEDS: ATORVASTATIN CALCIUM 40MG TABLET PO SCH (21:34)
[2019-12-28] MEDS: BLOOD SUGAR DIAGNOSTIC STRIP TEST SCH ×4 (05:35→21:59)
[2019-12-28] MEDS: PANTOPRAZOLE 40MG DR TABLET PO SCH (06:03)
[2019-12-28 08:16] VITALS: BP 132/72
[2019-12-28] MEDS: POTASSIUM CHLORIDE 10MEQ TABLET SR PO SCH (08:34)
[2019-12-28] MEDS: DOCUSATE SODIUM 100MG CAPSULE PO SCH ×2 (08:34→16:59)
[2019-12-28] MEDS: MIDODRINE HCL 2.5MG TABLET PO SCH ×3 (08:34→16:59)
[2019-12-28] MEDS: MEGESTROL ACETATE 400 MG/10 ML UDC PO SCH (08:35)
[2019-12-28] MEDS: APIXABAN 2.5 MG TABLET PO SCH ×2 (08:35→16:58)
[2019-12-28] MEDS: INSULIN LISPRO 100 UNITS/ML SUBCUT SCH ×4 (08:40→21:00)
[2019-12-28 13:21] VITALS: BP 122/74
[2019-12-28 16:45] VITALS: BP 112/61
[2019-12-28 20:00] VITALS: BP 108/71
[2019-12-28] MEDS: ATORVASTATIN CALCIUM 40MG TABLET PO SCH (21:50)
[2019-12-28] MEDS: SODIUM CHLORIDE 0.9% 1,000 ML IV SCH (21:52)
[2019-12-29] VITALS (8 sets, daily range): BP systolic 84–136; BP diastolic 50–73
[2019-12-29] MEDS: PANTOPRAZOLE 40MG DR TABLET PO SCH (06:14)
[2019-12-29] MEDS: BLOOD SUGAR DIAGNOSTIC STRIP TEST SCH ×4 (06:17→21:12)
[2019-12-29] MEDS: APIXABAN 2.5 MG TABLET PO SCH ×2 (08:57→16:43)
[2019-12-29] MEDS: MIDODRINE HCL 2.5MG TABLET PO SCH ×3 (08:57→16:43)
[2019-12-29] MEDS: DOCUSATE SODIUM 100MG CAPSULE PO SCH ×2 (08:58→16:42)
[2019-12-29] MEDS: MEGESTROL ACETATE 400 MG/10 ML UDC PO SCH (08:58)
[2019-12-29] MEDS: POTASSIUM CHLORIDE 10MEQ TABLET SR PO SCH (08:59)
[2019-12-29] MEDS: INSULIN LISPRO 100 UNITS/ML SUBCUT SCH ×4 (09:00→21:00)
[2019-12-29] MEDS: ATORVASTATIN CALCIUM 40MG TABLET PO SCH (21:13)
[2019-12-30] MEDS: BLOOD SUGAR DIAGNOSTIC STRIP TEST SCH ×4 (06:38→21:47)
[2019-12-30] MEDS: PANTOPRAZOLE 40MG DR TABLET PO SCH (06:46)
[2019-12-30 08:00] VITALS: BP 127/76
[2019-12-30] MEDS: MIDODRINE HCL 2.5MG TABLET PO SCH ×3 (08:37→16:20)
[2019-12-30] MEDS: DOCUSATE SODIUM 100MG CAPSULE PO SCH ×2 (08:37→16:20)
[2019-12-30] MEDS: APIXABAN 2.5 MG TABLET PO SCH ×2 (08:38→16:20)
[2019-12-30] MEDS: INSULIN LISPRO 100 UNITS/ML SUBCUT SCH ×4 (08:38→21:00)
[2019-12-30] MEDS: POTASSIUM CHLORIDE 10MEQ TABLET SR PO SCH (08:38)
[2019-12-30] MEDS: MEGESTROL ACETATE 400 MG/10 ML UDC PO SCH (08:38)
[2019-12-30 20:00] VITALS: BP 137/68
[2019-12-30] MEDS: ATORVASTATIN CALCIUM 40MG TABLET PO SCH (21:48)
[2019-12-31] MEDS: BLOOD SUGAR DIAGNOSTIC STRIP TEST SCH ×4 (06:10→21:25)
[2019-12-31] MEDS: FAMOTIDINE 20MG TABLET PO SCH (06:11)
[2019-12-31] MEDS: INSULIN LISPRO 100 UNITS/ML SUBCUT SCH ×4 (06:15→21:00)
[2019-12-31 06:21] LABS: BASOPHILS % 0.6 % (0.0-2.0); EOSINOPHILS % 3.9 % (0.0-5.0); HEMATOCRIT. 30.6 % (42.0-52.0); HEMOGLOBIN. 10.4 g/dL (14.0-18.0); LYMPHOCYTES % 36.9 % (20.0-50.0); MEAN CORPUSCULAR HEMOGLOBIN 32.7 pg (28.0-32.0); MEAN CORPUSCULAR VOLUME 96.4 fL (80.0-94.0); MEAN PLATELET VOLUME 7.7 fl (7.4-10.4); MONOCYTES % 7.7 % (2.0-8.0); NEUTROPHILS % 50.9 % (40.0-76.0); PLATELET 198 x1000/uL (130-400); RED BLOOD CELL COUNT 3.18 mill/uL (4.7-6.1)
[2019-12-31 06:25] LABS: CHLORIDE 120 mEq/L (98-107)
[2019-12-31 08:00] VITALS: BP 115/84
[2019-12-31] MEDS: POTASSIUM CHLORIDE 10MEQ TABLET SR PO SCH (08:35)
[2019-12-31] MEDS: DOCUSATE SODIUM 100MG CAPSULE PO SCH ×2 (08:35→16:20)
[2019-12-31] MEDS: APIXABAN 2.5 MG TABLET PO SCH ×2 (08:36→16:19)
[2019-12-31] MEDS: MIDODRINE HCL 2.5MG TABLET PO SCH ×3 (08:36→16:19)
[2019-12-31] MEDS: MEGESTROL ACETATE 400 MG/10 ML UDC PO SCH (08:36)
[2019-12-31 20:00] VITALS: BP 98/55
[2019-12-31] MEDS: ATORVASTATIN CALCIUM 40MG TABLET PO SCH (21:25)
[2020-01-01] MEDS: BLOOD SUGAR DIAGNOSTIC STRIP TEST SCH ×2 (06:08→11:51)
[2020-01-01] MEDS: FAMOTIDINE 20MG TABLET PO SCH (06:09)
[2020-01-01] MEDS: INSULIN LISPRO 100 UNITS/ML SUBCUT SCH ×2 (06:13→11:51)
[2020-01-01 07:56] VITALS: BP 118/76
[2020-01-01] MEDS: POTASSIUM CHLORIDE 10MEQ TABLET SR PO SCH (09:34)
[2020-01-01] MEDS: MIDODRINE HCL 2.5MG TABLET PO SCH ×2 (09:35→12:38)
[2020-01-01] MEDS: DOCUSATE SODIUM 100MG CAPSULE PO SCH (09:35)
[2020-01-01] MEDS: APIXABAN 2.5 MG TABLET PO SCH (09:35)
[2020-01-01] MEDS: MEGESTROL ACETATE 400 MG/10 ML UDC PO SCH (09:37)
[2020-01-01 11:10] VITALS: BP 118/76
[2020-01-01 12:39] VITALS: BP 102/53
== END 2020-01-01 14:50 | DRG 92 ==
PROVIDERS: ADMIT Psychiatry & Neurology Neurology; ATTEND Family Medicine
DX: G92 Toxic encephalopathy (principal); I43 Cardiomyopathy in diseases classified elsewhere; I50.22 Chronic systolic (congestive) heart failure; Z68.1 Body mass index [BMI] 19.9 or less, adult; I69.354 Hemiplegia and hemiparesis following cerebral infarction affecting left non-dominant side; D50.9 Iron deficiency anemia, unspecified; E78.5 Hyperlipidemia, unspecified; F03.90 Unspecified dementia, unspecified severity, without behavioral disturbance, psychotic disturbance, mood disturbance, and anxiety; I11.0 Hypertensive heart disease with heart failure; I25.10 Atherosclerotic heart disease of native coronary artery without angina pectoris; I34.0 Nonrheumatic mitral (valve) insufficiency; I48.91 Unspecified atrial fibrillation; I95.1 Orthostatic hypotension; J44.9 Chronic obstructive pulmonary disease, unspecified; K21.9 Gastro-esophageal reflux disease without esophagitis; K59.00 Constipation, unspecified; I95.9 Hypotension, unspecified; R27.0 Ataxia, unspecified; E11.51 Type 2 diabetes mellitus with diabetic peripheral angiopathy without gangrene; Z60.2 Problems related to living alone; R26.89 Other abnormalities of gait and mobility; R53.1 Weakness; R32 Unspecified urinary incontinence; R62.7 Adult failure to thrive; Z79.01 Long term (current) use of anticoagulants; Z79.82 Long term (current) use of aspirin; Z87.891 Personal history of nicotine dependence; Z95.5 Presence of coronary angioplasty implant and graft; Z79.899 Other long term (current) drug therapy; Z95.810 Presence of automatic (implantable) cardiac defibrillator
CPT/HCPCS: 36415; 71045; 76775; 80048; 80053; 81003; 82962; 83880; 85025; 92523; 92610; 97116; 97162; 97166; 97530; 97535; J7030; P9047; U0003-CS